=== PATIENT | male | born 1935 | race Caucasian/White ===

== ENCOUNTER 2016-10-04 15:29 | Inpatient (IN) | payer OTHER ==
--- NOTE | 2016-10-04 15:56 | PDOC ---
History of Present Illness - General History Source: Patient Exam Limitations: No Limitations - History of Present Illness Initial Comments: 10/04/16 16:12 The patient is a 81 year old male with a significant past medical history of colon ca and hypertension, who presents to the emergency department with rectal pain. He also reports lower abdominal pain. Patient notes that he has had radiation seeds embedded for about a month ago. He notes that he has an appointment scheduled with his oncologist. He denies chest pain, shortness of breath, headache and dizziness. He denies fever, chills, nausea, vomit, diarrhea, melena, hematochezia and constipation. He denies dysuria, frequency, urgency and hematuria. <Dyan Arreguin - Last Filed: 10/04/16 16:12> <Brennon Sanchez - Last Filed: 10/05/16 09:07> - General Chief Complaint: Nausea/Vomiting Stated Complaint: VOMITTING Past History <Dyan Arreguin - Last Filed: 10/04/16 16:12> - Past Medical History Anemia: No Asthma: No Cancer: No Cardiac Disorders: No CVA: No COPD: No CHF: No Dementia: No Diabetes: No GI Disorders: Yes (DIVERTICULOSIS) Disorders: Yes (H/O PROSTATE CA) HTN: Yes Hypercholesterolemia: Yes Liver Disease: No Seizures: No Thyroid Disease: No - Surgical History Abdominal Surgery: No Appendectomy: No Cardiac Surgery: No Cholecystectomy: No Lung Surgery: No Neurologic Surgery: No Orthopedic Surgery: No - Psycho/Social/Smoking Cessation Hx Anxiety: No Suicidal Ideation: No Smoking Status: No Smoking History: Never smoked Have you smoked in the past 12 months: No Number of Cigarettes Smoked Daily: 0 Hx Alcohol Use: No Drug/Substance Use Hx: No Substance Use Type: None Hx Substance Use Treatment: No <Brennon Sanchez - Last Filed: 10/05/16 09:07> - Past Medical History Allergies/Adverse Reactions: Allergies Allergy/AdvReac Type Severity Reaction Status Date / Time No Known Allergies Allergy Verified 10/04/16 16:03 Home Medications: Ambulatory Orders Amlodipine Besylate [Norvasc -] 5 mg PO DAILY 02/17/14 Losartan/Hydrochlorothiazide [Losartan-Hctz 100-12.5 mg Tab] 1 each PO DAILY 02/25 Tamsulosin HCl [Flomax] 0.4 mg PO DAILY 02/17/14 Rosuvastatin Calcium [Crestor] 10 mg PO HS 10/04/16 Review of Systems - Review of Systems Able to Perform ROS?: Yes Comments:: 10/04/16 16:13 CONSTITUTIONAL: Absent: fever, chills, diaphoresis, generalized weakness, malaise, loss of appetite HEENT: Absent: rhinorrhea, nasal congestion, throat pain, throat swelling, difficulty swallowing, mouth swelling, ear pain, eye pain, visual Changes CARDIOVASCULAR: Absent: chest pain, syncope, palpitations, irregular heart rate, lightheadedness , peripheral edema RESPIRATORY: Absent: cough, shortness of breath, dyspnea with exertion, orthopnea, wheezing, stridor, hemoptysis GASTROINTESTINAL: Present: abdominal pain, rectal pain. Absent: abdominal distension, nausea, vomiting, diarrhea, constipation, melena, hematochezia GENITOURINARY: Absent: dysuria, frequency, urgency, hesitancy, hematuria, flank pain, genital pain MUSCULOSKELETAL: Absent: myalgia, arthralgia, joint swelling SKIN: Absent: rash, itching, pallor HEMATOLOGIC/IMMUNOLOGIC: Absent: easy bleeding, easy bruising, lymphadenopathy, frequent infections ENDOCRINE: Absent: unexplained weight gain, unexplained weight loss, heat intolerance, cold intolerance NEUROLOGIC: Absent: headache, focal weakness or paresthesias, dizziness, unsteady gait, seizure, mental status changes, bladder or bowel incontinence PSYCHIATRIC: Absent: anxiety, depression, suicidal or homicidal ideation, hallucinations. <Dyan Arreguin - Last Filed: 10/04/16 16:12> *Physical Exam - Vital Signs Last Vital Signs Temp Pulse Resp BP Pulse Ox 97.7 F 60 18 180/73 100 10/04/16 16:04 10/04/16 16:04 10/04/16 16:04 10/04/16 16:04 10/04/16 16:04 - Physical Exam Comments: 10/04/16 16:13 GENERAL: Well developed, well nourished. Awake and alert. In no acute distress. HEENT: Normocephalic, atraumatic. PERRLA, EOMI. No conjunctival pallor. Sclera are non- icteric. Moist mucous membranes. Oropharynx is clear. NECK: Supple. Full ROM. No JVD. Carotid pulses 2+ and symmetric, without bruits. No thyromegaly. No lymphadenopathy. CARDIOVASCULAR: Regular rate and rhythm. No murmurs, rubs, or gallops. Distal pulses are 2+ and symmetric. PULMONARY: No evidence of respiratory distress. Lungs clear to auscultation bilaterally. No wheezing, rales or rhonchi. ABDOMINAL: +Lower abdominal tenderness upon palpation. Soft. Non-distended. No rebound or guarding. No organomegaly. Normoactive bowel sounds. MUSCULOSKELETAL Normal range of motion at all joints. No bony deformities or tenderness. No CVA tenderness. EXTREMITIES: No cyanosis. No clubbing. No edema. No calf tenderness. SKIN: Warm and dry. Normal capillary refill. No rashes. No jaundice. NEUROLOGICAL: Alert, awake, appropriate. Cranial nerves 2-12 intact. No deficits to light touch and temperature in face, upper extremities and lower extremities. No motor deficits in the in face, upper extremities and lower extremities. Normoreflexic in the upper and lower extremities. Normal speech. Toes are downgoing bilaterally. Gait is normal without ataxia. PSYCHIATRIC: Cooperative. Good eye contact. Appropriate mood and affect. RECTAL EXAM: no hemorrhoids, prostate slightly enlarged, no palpable mass or blood. <Dyan Arreguin - Last Filed: 10/04/16 16:12> ED Treatment Course - LABORATORY CBC & Chemistry Diagram: 10/04/16 16:27 10/04/16 16:27 <Brennon Sanchez - Last Filed: 10/05/16 09:07> Medical Decision Making - Medical Decision Making 10/05/16 09:06 CT shows appendicitis read by the radiologist. Dr. Dean to do surgery. <Brennon Sanchez - Last Filed: 10/05/16 09:07> *DC/Admit/Observation/Transfer - Attestations Scribe Attestion: 10/04/16 16:15 Documentation prepared by LINDA Lazo, acting as medical typist for Brennon Sanchez MD. <Dyan Arreguin - Last Filed: 10/04/16 16:12> - Discharge Dispostion Admit: Yes <Brennon Sanchez - Last Filed: 10/05/16 09:07> Diagnosis at time of Disposition: Appendicitis, acute Qualifiers: Acute appendicitis type: other Qualified Code(s): K35.89 - Other acute appendicitis - Discharge Dispostion Condition at time of disposition: Stable
[2016-10-04] MEDS ORDERED: SODIUM CHLORIDE 1,000 ML IV SCH (16:15)
[2016-10-04 16:46] LABS: EOSINOPHIL 1.1 % (0-4.5); MCH 28.7 pg (25.7-33.7); MCHC 33.2 g/dl (32.0-35.9); MEAN CELL VOLUME 86.5 fl (80-96); MEAN PLT VOLUME 10.7 fl (7.5-11.1); NEUTROPHILS 50.5 % (42.8-82.8); PLATELET COUNT 117 K/MM3 (134-434); RDW 12.6 % (11.9-15.9); WHITE BLOOD COUNT 7.3 K/mm3 (4.0-10.0)
[2016-10-04 17:08] LABS: ALBUMIN 4.2 g/dl (3.4-5.0); ALK PHOS 65 U/L (45-117); ANION GAP 9 (8-16); BILIRUBIN,TOTAL 0.5 mg/dL (0.2-1.0); CALCIUM 9.6 mg/dL (8.5-10.1); CO2 28 mmol/L (21-32); GLUCOSE,RANDOM 109 mg/dL (74-106); SGOT/AST 35 U/L (15-37); SGPT/ALT 18 U/L (12-78)
[2016-10-04 17:28] LABS: URINE APPEARANCE CLEAR; URINE BILIRUBIN NEGATIVE (NEGATIVE); URINE BLOOD NEGATIVE (NEGATIVE); URINE COLOR STRAW; URINE GLUCOSE (UA) NEGATIVE (NEGATIVE); URINE KETONE NEGATIVE (NEGATIVE); URINE LEUK ESTERASE NEGATIVE (NEGATIVE); URINE NITRITE NEGATIVE (NEGATIVE); URINE PROTEIN NEGATIVE (NEGATIVE); URINE UROBILINOGEN NEGATIVE E.U./dl (0.2-1.0)
[2016-10-04] MEDS ORDERED: PIPERACILLIN/TAZOB 3.375 GM 3.375 GM in DEXTROSE 5%-WATER - 50 ML IVPB ONE (22:13)
--- NOTE | 2016-10-04 22:13 | PDOC ---
[id number] 100 10/04/16 16:04 10/04/16 16:04 10/04/16 16:04 10/04/16 16:04 10/04/16 16:04 <Dorian Quintero - Last Filed: 10/04/16 22:28> - Vital Signs Last Vital Signs Temp Pulse Resp BP Pulse Ox 97.7 F 60 18 180/73 100 10/04/16 16:04 10/04/16 16:04 10/04/16 16:04 10/04/16 16:04 10/04/16 16:04 <Sahra Potter - Last Filed: 10/04/16 23:51> Heart Score/ECG Review - ECG Impressions Comment:: EKG read 23:49- sinus chasidy with 1st deg AV block 50 bpm <Sahra Potter - Last Filed: 10/04/16 23:51> ED Treatment Course - LABORATORY CBC & Chemistry Diagram: 10/04/16 16:27 10/04/16 16:27 - ADDITIONAL ORDERS Additional order review: Laboratory Results 10/04/16 10/04/16 10/04/16 17:15 16:27 16:27 Sodium 136 Potassium 4.2 Chloride 99 Carbon Dioxide 28 Anion Gap 9 BUN 12 D Creatinine 1.0 D Creat Clearance w eGFR > 60 Random Glucose 109 H Calcium 9.6 Total Bilirubin 0.5 AST 35 ALT 18 Alkaline Phosphatase 65 Total Protein 8.0 Albumin 4.2 Urine Color Straw Urine Appearance Clear Urine pH 9.0 H Ur Specific [place] 1.005 Urine Protein Negative Urine Glucose (UA) Negative Urine Ketones Negative Urine Blood Negative Urine Nitrite Negative Urine Bilirubin Negative Urine Urobilinogen Negative Ur Leukocyte Esterase Negative Stool Occult Blood Negative 10/04/16 16:27 RBC 4.78 MCV 86.5 MCHC 33.2 RDW 12.6 MPV 10.7 Neutrophils % 50.5 Lymphocytes % 39.5 Monocytes % 7.9 Eosinophils % 1.1 Basophils % 1.0 - Medications Given in the ED: ED Medications Discontinued Medications Generic Name Dose Route Start Last Admin Trade Name Freq PRN Reason Stop Dose Admin Fentanyl 100 mcg 10/04/16 16:15 10/04/16 16:49 Sublimaze Injection - IVPUSH 10/04/16 16:16 100 mcg ONCE ONE Administration <Dorian Quintero - Last Filed: 10/04/16 22:28> - LABORATORY CBC & Chemistry Diagram: 10/04/16 16:27 10/04/16 16:27 - ADDITIONAL ORDERS Additional order review: Laboratory Results 10/04/16 10/04/16 10/04/16 17:15 16:27 16:27 WBC 7.3 RBC 4.78 Hgb 13.7 Hct 41.4 MCV 86.5 MCHC 33.2 RDW 12.6 Plt Count 117 L MPV 10.7 Neutrophils % 50.5 Lymphocytes % 39.5 Monocytes % 7.9 Eosinophils % 1.1 Basophils % 1.0 Sodium Potassium Chloride Carbon Dioxide Anion Gap BUN Creatinine Creat Clearance w eGFR Random Glucose Calcium Total Bilirubin AST ALT Alkaline Phosphatase Total Protein Albumin Urine Color Straw Urine Appearance Clear Urine pH 9.0 H Ur Specific [place] 1.005 Urine Protein Negative Urine Glucose (UA) Negative Urine Ketones Negative Urine Blood Negative Urine Nitrite Negative Urine Bilirubin Negative Urine Urobilinogen Negative Ur Leukocyte Esterase Negative Stool Occult Blood Negative 10/04/16 16:27 WBC RBC Hgb Hct MCV MCHC RDW Plt Count MPV Neutrophils % Lymphocytes % Monocytes % Eosinophils % Basophils % Sodium 136 Potassium 4.2 Chloride 99 Carbon Dioxide 28 Anion Gap 9 BUN 12 D Creatinine 1.0 D Creat Clearance w eGFR > 60 Random Glucose 109 H Calcium 9.6 Total Bilirubin 0.5 AST 35 ALT 18 Alkaline Phosphatase 65 Total Protein 8.0 Albumin 4.2 Urine Color Urine Appearance Urine pH Ur Specific [place] Urine Protein Urine Glucose (UA) Urine Ketones Urine Blood Urine Nitrite Urine Bilirubin Urine Urobilinogen Ur Leukocyte Esterase Stool Occult Blood 10/04/16 16:27 RBC 4.78 MCV 86.5 MCHC 33.2 RDW 12.6 MPV 10.7 Neutrophils % 50.5 Lymphocytes % 39.5 Monocytes % 7.9 Eosinophils % 1.1 Basophils % 1.0 - Medications Given in the ED: ED Medications Discontinued Medications Generic Name Dose Route Start Last Admin Trade Name Monica PRN Reason Stop Dose Admin Fentanyl 100 mcg 10/04/16 16:15 10/04/16 16:49 Sublimaze Injection - IVPUSH 10/04/16 16:16 100 mcg ONCE ONE Administration <Sahra Potter - Last Filed: 10/04/16 23:51> Medical Decision Making - Medical Decision Making 10/04/16 22:28 First call placed to Dr. Rasheed at 22:25. Case discussed with Dr. Rasheed at 22:28. <Dorian Quintero - Last Filed: 10/04/16 22:28> - Medical Decision Making 10/04/16 18:32 Patient endorsed to me by Dr. Sanchez, awaiting CT a/p for further evaluation of acute abdomen. Hx rectal CA s/p seed implant. 10/04/16 22:20 Case d/w Dr. Dean. Will evaluate in AM. I have given zosyn. 10/04/16 22:29 D/w Dr. Rasheed, covering Dr. Rubalcava. Will admit. <Sahra Potter - Last Filed: 10/04/16 23:51> *DC/Admit/Observation/Transfer <Dorian Quintero - Last Filed: 10/04/16 22:28> - Discharge Dispostion Admit: Yes <Sahra Potter - Last Filed: 10/04/16 23:51> Diagnosis at time of Disposition: Appendicitis, acute Qualifiers: Acute appendicitis type: other Qualified Code(s): K35.89 - Other acute appendicitis - Discharge Dispostion Condition at time of disposition: Stable - Referrals
[2016-10-04] MEDS ORDERED: PIPERACILLIN/TAZOB 3.375 GM 50 ML IVPB ONE (22:16)
[2016-10-04] MEDS ORDERED: ACETAMINOPHEN 1000 MG/100 ML VIAL (NON FORMULARY) IVPB PRN (23:11)
[2016-10-04] MEDS ORDERED: ONDANSETRON 4 MG/2 ML VIAL IVPB PRN (23:11)
[2016-10-04] MEDS ORDERED: morphine CARPU-JECT 4 MG/1 ML DISP.SYRIN IVPUSH PRN (23:11)
[2016-10-04] MEDS ORDERED: amLODIPine BESYLATE 5 MG TABLET (FP) PO ONE (23:14)
[2016-10-04] MEDS ORDERED: DEXTROSE 5%-NORMAL SALINE 1,000 ML IV SCH (23:15)
[2016-10-04] MEDS: PIPERACILLIN/TAZOB 3.375 GM/50 ML PRE-DOCKED IVPB SCH (23:16)
[2016-10-04] MEDS ORDERED: amLODIPine BESYLATE 5 MG TABLET (FP) ONE (23:17)
--- NOTE | 2016-10-05 08:26 | CON.CARD ---
Consult Consult Specialty:: CARDIO Referred by:: guy Reason for Consultation:: chf eval - History of Present Illness Chief Complaint: abd pain History of Present Illness: 81 yo male presented with abdominal and rectal pain. he has known colon Ca s/p radiation seeds implant recently, with Onc f/u. had CT a/p in ER, ? what results were--dr coburn of surgery has been consulted for appendicitis pt is [place] speaking--denies (in [place]) cp or sob or any h/o weak heart or [place]; says he has BP but no heart problems. says he does not ever get cp or sob, including can walk up 2 flights of stairs without stopping currently denies cp and sob as well PMH: HTN - Alcohol/Substance Use Hx Alcohol Use: No - Smoking History Smoking history: Never smoked Have you smoked in the past 12 months: No Aproximately how many cigarettes per day: 0 Home Medications - Allergies Allergies/Adverse Reactions: Allergies Allergy/AdvReac Type Severity Reaction Status Date / Time No Known Allergies Allergy Verified 10/04/16 16:03 - Home Medications Home Medications: Ambulatory Orders Amlodipine Besylate [Norvasc -] 5 mg PO DAILY 02/17/14 Losartan/Hydrochlorothiazide [Losartan-Hctz 100-12.5 mg Tab] 1 each PO DAILY 02/25 Tamsulosin HCl [Flomax] 0.4 mg PO DAILY 02/17/14 Rosuvastatin Calcium [Crestor] 10 mg PO HS 10/04/16 Family Disease History - Family Disease History Family History: Denies (no cmp) Review of Systems - Review of Systems Constitutional: denies: Chills, Fever Eyes: denies: Eye Pain HENT: denies: Nasal Congestion Neck: denies: Stiffness Cardiovascular: denies: Palpitations Respiratory: denies: Orthopnea, PND Gastrointestinal: denies: Diarrhea, Rectal Bleeding Genitourinary: denies: Burning, Hematuria Musculoskeletal: denies: Muscle Pain Integumentary: denies: Rash Neurological: denies: Numbness, Seizure, Syncope Endocrine: denies: Excessive Sweating Hematology/Lymphatic: denies: Excessive Bleeding Vital Signs: Vital Signs Temperature 98.2 F 10/05/16 07:27 Pulse Rate 62 10/05/16 07:27 Respiratory Rate 20 10/05/16 07:27 Blood Pressure 124/80 10/05/16 07:27 O2 Sat by Pulse Oximetry (%) 100 10/04/16 16:04 Constitutional: Yes: Well Nourished, No Distress Eyes: No: Sclera Icterus HENT: No: Nasal Congestion Neck: No: Decreased ROM Respiratory: Yes: CTA Bilaterally. No: Accessory Muscle Use, Rales, Wheezes Gastrointestinal: Yes: Normal Bowel Sounds, Tenderness (lower abd R > L). No: Distention, Hepatomegaly, Palpable Mass Cardiovascular: Yes: Regular Rate and Rhythm JVD: No Carotid Bruit: Yes PMI: Non-Displaced Heart Sounds: Yes: S1, S2. No: Gallop Murmur: No: Systolic Murmur, Diastolic Murmur Musculoskeletal: Yes: Other (No kyphosis) Extremities: No: Cool, Cyanosis Edema: No Peripheral Pulses: 2+ Left Carotid, 2+ Right Carotid, 2+ Left Doralis Pedis, 2+ Right Dorsalis Pedis Integumentary: No: Jaundice Neurological: Yes: Alert. No: Seizure Psychiatric: No: Agitated - Other Data Labs, Other Data: Laboratory Tests 10/04/16 10/04/16 16:27 16:27 WBC 7.3 Hgb 13.7 Plt Count 117 L Sodium 136 Potassium 4.2 Carbon Dioxide 28 BUN 12 D Creatinine 1.0 D AST 35 ALT 18 ekg: NSR, 1st degr AVB; nl axis; qs v1-2 only, no ST-T (no old) Assessment/Plan abd pain, h/o colon Ca: -per pmd and surgery consult HTN: -bp reasonably controlled here -cont home meds preop CV eval: -in the event that pt requires abdominal or any other surgery: his RCRI is 0 with preserved functional status; -he denies any sx's of ischemic heart dz or chf/valvular dz at baseline, and currently appears euvolemic with normal exam and no cv sx's -he is low risk for periop CV complications and may proceed without further testing
[2016-10-05] MEDS ORDERED: ePHEDrine SULFATE 50 MG/1 ML AMPULE ONE (08:32)
[2016-10-05] MEDS ORDERED: PHENYLEPHRINE HCL 10 MG/1 ML SINGLE DOSE VIAL ONE (08:32)
[2016-10-05] MEDS ORDERED: SUCCINYLCHOLINE CHLORIDE 200 MG/10 ML VIAL ONE (08:33)
[2016-10-05] MEDS ORDERED: ROCURONIUM BROMIDE 50 MG/5 ML VIAL ONE (08:33)
[2016-10-05] MEDS ORDERED: PROPOFOL 20 ML ONE ×2 (08:33)
[2016-10-05] MEDS ORDERED: SODIUM CHLORIDE 0.9% P/F 10 ML VIAL IJ ONE ×2 (08:40→10:12)
[2016-10-05] MEDS ORDERED: ceFAZolin SODIUM 1 GM VIAL ONE (10:12)
[2016-10-05] MEDS ORDERED: ONDANSETRON 4 MG/2 ML VIAL ONE (10:13)
[2016-10-05] MEDS ORDERED: GLYCOPYRROLATE 0.2 MG/1 ML VIAL ONE (10:13)
[2016-10-05] MEDS ORDERED: NEOSTIGMINE METHYLSULFATE 0.5 MG/ML - 10 ML MDV ONE (10:13)
[2016-10-05] MEDS ORDERED: LIDOCAINE HCL/PF 2% SDV 5ML VIAL ONE (10:33)
[2016-10-05] MEDS ORDERED: ACETAMINOPHEN INJECTION 100 ML IVPB ONE (10:44)
[2016-10-05] MEDS ORDERED: ceFAZolin SODIUM 1 GM VIAL IVPB ONE (11:11)
[2016-10-05] MEDS ORDERED: BUPIVACAINE HCL/PF 0.5% (5MG/ML) 10 ML VIAL IJ ONE (11:45)
[2016-10-05] MEDS ORDERED: ONDANSETRON 4 MG/2 ML VIAL IVPUSH PRN (12:09)
[2016-10-05] MEDS ORDERED: LACTATED RINGERS SOLUTION 1,000 ML IV SCH (12:15)
--- NOTE | 2016-10-05 13:13 | CONSULT ---
Consult Consult Specialty:: Surgery Reason for Consultation:: Acute appendicitis - History of Present Illness Chief Complaint: Abdominal pain History of Present Illness: 81 male presents for abdominal pain x 1-2 days Pain in RLQ No prior similar symptoms in the past No fevers/chills No diarrhea - History Source History Provided By: Patient, Family Member, Medical Record Limitations to Obtaining History: Language Barrier - Past Medical History Cardio/Vascular: Yes: HTN Renal/: Yes: Cancer (Prostate cancer- radiation seed placement) - Alcohol/Substance Use Hx Alcohol Use: No - Smoking History Smoking history: Never smoked Have you smoked in the past 12 months: No Aproximately how many cigarettes per day: 0 Home Medications - Allergies Allergies/Adverse Reactions: Allergies Allergy/AdvReac Type Severity Reaction Status Date / Time No Known Allergies Allergy Verified 10/04/16 16:03 - Home Medications Home Medications: Ambulatory Orders Amlodipine Besylate [Norvasc -] 5 mg PO DAILY 02/17/14 Losartan/Hydrochlorothiazide [Losartan-Hctz 100-12.5 mg Tab] 1 each PO DAILY 02/25 Tamsulosin HCl [Flomax] 0.4 mg PO DAILY 02/17/14 Rosuvastatin Calcium [Crestor] 10 mg PO HS 10/04/16 Family Disease History - Family Disease History Family History: Unremarkable Review of Systems - Review of Systems Constitutional: denies: Chills, Fever Neck: reports: No Symptoms Cardiovascular: denies: Chest Pain Respiratory: denies: Cough Gastrointestinal: reports: Abdominal Pain. denies: Diarrhea, Nausea, Vomiting Genitourinary: reports: No Symptoms Neurological: denies: Change in LOC Pain Intensity: 4 Physical Exam Vital Signs: Vital Signs Temperature 97.6 F 10/05/16 12:00 Pulse Rate 64 10/05/16 13:00 Respiratory Rate 10 L 10/05/16 13:00 Blood Pressure 141/73 10/05/16 13:00 O2 Sat by Pulse Oximetry (%) 100 10/05/16 13:00 Constitutional: Yes: Calm HENT: Yes: WNL Neck: Yes: Supple Cardiovascular: Yes: Regular Rate and Rhythm Respiratory: Yes: Regular Gastrointestinal: Yes: Soft, Tenderness (RLQ). No: Distention, Tenderness, Rebound Extremities: Yes: WNL Neurological: Yes: Alert, Oriented Labs: CBC, BMP 10/04/16 16:27 10/04/16 16:27 Imaging - Results Cat Scan: Report Reviewed, Image Reviewed Problem List - Problems (1) Appendicitis, acute Code(s): K35.80 - UNSPECIFIED ACUTE APPENDICITIS Qualifiers: Acute appendicitis type: with localized peritonitis Qualified Code(s ): K35.3 - Acute appendicitis with localized peritonitis Assessment/Plan 81 male with acute appendicitis NPO Antibiotics For laparoscopic possible open appendectomy Risks and benefits explained Understands and agrees
--- NOTE | 2016-10-05 13:14 | OP ---
Operative Note - Note: Operative Date: 10/05/16 Pre-Operative Diagnosis: Acute appendicitis Operation: Laparoscopic appendectomy Post-Operative Diagnosis: Same as Pre-op Surgeon: Jason Dean Digital Printer: Sheila Yadav Anesthesia: General Specimens Removed: Appendix Estimated Blood Loss (mls): 5 Operative Report Dictated: Yes
[2016-10-05] MEDS ORDERED: ACETAMINOPHEN 1000 MG/100 ML VIAL (NON FORMULARY) IVPB PRN (13:19)
[2016-10-05] MEDS ORDERED: ONDANSETRON 4 MG/2 ML VIAL IVPB PRN ×2 (13:19→17:52)
[2016-10-05] MEDS ORDERED: morphine CARPU-JECT 4 MG/1 ML DISP.SYRIN IVPUSH PRN (13:19)
[2016-10-05] MEDS: DEXTROSE 5%-NORMAL SALINE 1,000 ML IV SCH (13:30)
[2016-10-05] MEDS: HEPARIN NA (PORCINE) 5,000 UNITS/ML 1ML VIAL SQ SCH ×2 (14:22→21:16)
[2016-10-05] MEDS: PIPERACILLIN/TAZOB 3.375 GM/50 ML PRE-DOCKED IVPB SCH ×2 (14:23→14:24)
--- NOTE | 2016-10-05 15:10 | SURG ---
Surgery Brush Maker Note Brush Maker: Sheila Yadav PA-C Date of Service: 10/05/16 Diagnosis: Acute appendicitis Procedure: Laparoscopic appendectomy I was present for the entirety of the operative procedure. For further detail, please refer to operative report. Visit type - Case Type Case Type: ED Admission - New patient This patient is new to me today: Yes Date on this admission: 10/05/16
[2016-10-05 15:42] VITALS: BMI 24.9
[2016-10-05] MEDS ORDERED: LEVOFLOXACIN 500 MG IVPB 100 ML IVPB ONE (16:00)
--- NOTE | 2016-10-05 17:50 | HP ---
Admitting History and Physical - Primary Care Physician PCP: Kiya Pendleton - Admission Chief Complaint: ABDOMINAL PAIN/ACUTE APPENDICITS History of Present Illness: The patient is a 81 year old male with a significant past medical history of colon ca and hypertension, who presents to the emergency department with rectal pain. He also reports lower abdominal pain. Patient notes that he has had radiation seeds embedded for about a month ago. He notes that he has an appointment scheduled with his oncologist. He denies chest pain, shortness of breath, headache and dizziness. He denies fever, chills, nausea, vomit, diarrhea, melena, hematochezia and constipation. He denies dysuria, frequency, urgency and hematuria. ct scan shows acute appendicitis History Source: Patient, Medical Record - Past Medical History Cardiovascular: Yes: HTN Renal/: Yes: Cancer (Prostate cancer- radiation seed placement) - Smoking History Smoking history: Never smoked Have you smoked in the past 12 months: No Aproximately how many cigarettes per day: 0 - Alcohol/Substance Use Hx Alcohol Use: No Home Medications - Allergies Allergies/Adverse Reactions: Allergies Allergy/AdvReac Type Severity Reaction Status Date / Time No Known Allergies Allergy Verified 10/04/16 16:03 - Home Medications Home Medications: Ambulatory Orders Amlodipine Besylate [Norvasc -] 10 mg PO DAILY 02/17/14 Tamsulosin HCl [Flomax] 0.4 mg PO HS 02/17/14 Rosuvastatin Calcium [Crestor] 10 mg PO HS 10/04/16 Acetaminophen [Mapap] 500 mg PO Q6H PRN 10/05/16 Carvedilol 25 mg PO BID 10/05/16 Donepezil HCl 5 mg PO DAILY 10/05/16 Olmesartan/Hydrochlorothiazide [Olmesartan-Hctz 40-25 mg Tab] 1 each PO DAILY Oxycodone HCl/Acetaminophen [Percocet 5-325 mg Tablet] 1 - 2 tab PO Q6H #28 tab MDD 4 10/05/16 Review of Systems Findings/Remarks: POST -OP, DROWSEY S/P APPENDECTOMY TODAY - Review of Systems Constitutional: reports: Weakness Eyes: reports: No Symptoms HENT: reports: No Symptoms Neck: reports: No Symptoms Cardiovascular: reports: No Symptoms Respiratory: reports: No Symptoms Gastrointestinal: reports: Abdominal Pain, Dysphagia, Indigestion Genitourinary: reports: No Symptoms Musculoskeletal: reports: No Symptoms Integumentary: reports: No Symptoms Neurological: reports: No Symptoms Endocrine: reports: No Symptoms Hematology/Lymphatic: reports: No Symptoms Psychiatric: reports: No Symptoms Physical Examination Vital Signs: Vital Signs Temperature 97.8 F 10/05/16 15:09 Pulse Rate 60 10/05/16 15:09 Respiratory Rate 22 10/05/16 15:09 Blood Pressure 155/78 10/05/16 15:09 O2 Sat by Pulse Oximetry (%) 100 10/05/16 13:45 Constitutional: Yes: Mild Distress Eyes: Yes: WNL HENT: Yes: WNL Neck: Yes: WNL Cardiovascular: Yes: WNL Respiratory: Yes: WNL Gastrointestinal: Yes: Tenderness Renal/: Yes: WNL Musculoskeletal: Yes: WNL Extremities: Yes: WNL Edema: No Peripheral Pulses WNL: Yes Integumentary: Yes: WNL Wound/Incision: Yes: Clean/Dry Neurological: Yes: WNL ...Motor Strength: WNL Psychiatric: Yes: WNL Imaging - Results Cat Scan: Report Reviewed Problem List - Problems (1) Appendicitis, acute Assessment/Plan: POSTOP TODAY INCENTIVE SPIROMETRY IV LEVAQUIN OOB TO CHAIR DVT PROHYLAXIS Code(s): K35.80 - UNSPECIFIED ACUTE APPENDICITIS Qualifiers: Acute appendicitis type: with localized peritonitis Qualified Code(s ): K35.3 - Acute appendicitis with localized peritonitis
[2016-10-05] MEDS ORDERED: ACETAMINOPHEN 325 MG TABLET (FP) PO PRN (17:52)
[2016-10-05] MEDS ORDERED: PANTOPRAZOLE SODIUM 40 MG in SODIUM CHLORIDE 100 ML IVPB ONE (17:53)
[2016-10-05] MEDS ORDERED: PIPERACILLIN/TAZOB 3.375 GM/50 ML PRE-DOCKED IVPB SCH (18:00)
[2016-10-05] MEDS ORDERED: PANTOPRAZOLE SODIUM 40 MG/100 ML PRE-DOCKED IVPB ONE (18:15)
--- NOTE | 2016-10-05 20:20 | SPEC ---
DATE OF OPERATION: 10/05/2016 SURGEON: Jason Dean MD SYSTEMS DEVELOPMENT MANAGER: QIAN Brooke PREOPERATIVE DIAGNOSIS: Acute appendicitis. POSTOPERATIVE DIAGNOSIS: Acute appendicitis. PROCEDURE: Laparoscopic appendectomy. ESTIMATED BLOOD LOSS: 5 mL. DRAINS: None. ANESTHESIA: GET. SPECIMENS: Appendix. FINDINGS: Acute appendicitis. REASON FOR PROCEDURE: This is an 81-year-old gentleman who presented to the hospital with abdominal pain. On imaging, he was found to have evidence of acute appendicitis. Because of this, he was consented for a laparoscopic, possible open, appendectomy. RISKS AND BENEFITS: The risks and benefits were explained for a laparoscopic, possible open appendectomy. These included bleeding, infection, hernia, MD, DVT, PE, injury to surrounding structures including the liver, colon, bowel, bladder, ureter, vessel injury, nerve injury, abscess formation, staple line leak, staple line dehiscence as some of the possible complications. The patient understood and signed informed consent. DESCRIPTION OF PROCEDURE: The patient was placed supine on the operating room table. The patient underwent general endotracheal intubation. A Humphreys catheter was inserted by the nursing staff. The abdomen was prepped and draped in the usual sterile fashion. A timeout was performed. A periumbilical incision was made and a 5-mm optical trocar was inserted under direct visualization with the laparoscope. Pneumoperitoneum was then established. Subsequently, a 5-mm trocar was placed in the suprapubic area and a 12-mm trocar placed in the left lower quadrant. The patient was placed in Trendelenburg right side up position. After meticulous dissection, the appendix was identified. The appendix was freed from its surrounding structures and the appendix was retracted to the anterior abdominal wall. The base of the appendix was identified. A window was created within the mesentery near the base of the appendix. The appendix at its base was stapled using a laparoscopic Endo-RONI stapler with a white load. The mesoappendix was then transected using a laparoscopic Endo-RONI stapler with a white load. The appendix was placed in an EndoCatch bag. Inspection of both staple lines was identified. The staple line at the base of the appendix was noted to be fully intact. Hemostasis was noted at the staple line of the mesoappendix. Copious irrigation and suction was performed. The appendix was removed from the abdominal cavity and sent off the operative field as specimen. The patient was then placed in left side up position. The 12-mm trocar was removed. The fascia at this site was closed using a 0 Vicryl suture with a Sedrick-Simi device. The patient was then placed supine. Pneumoperitoneum was desufflated and all further trocars were removed. All incision sites were irrigated and Marcaine was injected at all incision sites. The fascial suture was secured. All incision sites were closed using 4-0 Biosyn. Sterile dressings were applied. The patient tolerated the procedure well. The Humphreys catheter was removed and the patient was transferred to the recovery room in stable condition. James YANCEY/[id number]
[2016-10-05] MEDS: CARVEDILOL 25 MG TABLET (FP) PO SCH (21:16)
[2016-10-05] MEDS ORDERED: ROSUVASTATIN CA 10 MG TABLET (FP) PO SCH (22:00)
--- NOTE | 2016-10-05 23:25 | EKG ---
Test Reason : Blood Pressure : / mmHG Vent. 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
[2016-10-06] MEDS: HEPARIN NA (PORCINE) 5,000 UNITS/ML 1ML VIAL SQ SCH ×2 (05:34→14:37)
[2016-10-06 07:21] LABS: MCHC 33.4 g/dl (32.0-35.9); MEAN CELL VOLUME 86.8 fl (80-96); MEAN PLT VOLUME 9.6 fl (7.5-11.1); PLATELET COUNT 110 K/MM3 (134-434); RDW 12.8 % (11.9-15.9); WHITE BLOOD COUNT 6.8 K/mm3 (4.0-10.0)
--- NOTE | 2016-10-06 07:59 | PN ---
Progress Note (short form) - Note Progress Note: POD #2 s/p Lap appy No acute events since surgery per RN notes. Sitting in chair at bedside resting comfortably without complaint. Tolerating PO diet. Ambulating. Voiding. Denies n/v/f/c, CP or SOB. Last Vital Signs Temp Pulse Resp BP Pulse Ox 98.7 F 53 L 18 177/72 100 10/06/16 07:08 10/06/16 07:08 10/06/16 07:08 10/06/16 07:08 10/05/16 21:00 CBC, BMP 10/06/16 06:00 PE General: NAD ABD: soft. NT. ND. All surgical ports intact. No hematoma. LE: soft. NT b/l <Jerome Arriola P - Last Filed: 10/06/16 07:55> - Note Progress Note: Agree POD 1 laparoscopic appendectomy No pain On diet AVSS Abd soft WBC 6.8 Doing well Can discharge home from surgery standpoint No lifting more than 10 pounds x 6 weeks Follow up in 1-2 weeks <Jason Dean - Last Filed: 10/06/16 12:56> Problem List - Problems (1) S/P laparoscopic appendectomy Assessment/Plan: Doing well. Can be discharged home from a surgical standpoint f/u w/ Dr. Dean in [address] of [address] Dean, thank you for allowing us to participate in your patient' s care <Jerome Arriola P - Last Filed: 10/06/16 07:55> - Problems (1) Appendicitis, acute Code(s): K35.80 - UNSPECIFIED ACUTE APPENDICITIS Qualifiers: Acute appendicitis type: with localized peritonitis Qualified Code(s ): K35.3 - Acute appendicitis with localized peritonitis <Jason Dean - Last Filed: 10/06/16 12:56>
--- NOTE | 2016-10-06 08:02 | PN ---
Progress Note (short form) - Note Progress Note: Anesthesia post op Pt seen and examined S:Alert and wake,comfortable O: Vital Signs Temperature 98.7 F 10/06/16 07:08 Pulse Rate 53 L 10/06/16 07:08 Respiratory Rate 18 10/06/16 07:08 Blood Pressure 177/72 10/06/16 07:08 O2 Sat by Pulse Oximetry (%) 100 10/05/16 21:00 CBC, BMP 10/06/16 06:00 Current Active Problems A/P:Appendicitis, acute (Acute) S/P laparoscopic appendectomy (Acute) Doing well post op Continue current care Jim Silveira MD
[2016-10-06 08:03] LABS: ALBUMIN 3.5 g/dl (3.4-5.0); ALK PHOS 56 U/L (45-117); ANION GAP 9 (8-16); BILIRUBIN,TOTAL 0.7 mg/dL (0.2-1.0); CALCIUM 8.8 mg/dL (8.5-10.1); CO2 30 mmol/L (21-32); CREATININE 0.8 mg/dL (0.7-1.3); GLUCOSE,RANDOM 111 mg/dL (74-106); SGOT/AST 25 U/L (15-37); SGPT/ALT 10 U/L (12-78); TOT PROT 6.9 g/dl (6.4-8.2)
[2016-10-06] MEDS ORDERED: TAMSULOSIN HCL 0.4 MG CAP.ER.24H (FP) PO SCH (08:30)
--- NOTE | 2016-10-06 08:47 | DS ---
Physical Examination Vital Signs: Vital Signs Temperature 98.7 F 10/06/16 07:08 Pulse Rate 53 L 10/06/16 07:08 Respiratory Rate 18 10/06/16 07:08 Blood Pressure 177/72 10/06/16 07:08 O2 Sat by Pulse Oximetry (%) 100 10/05/16 21:00 Cardiovascular: Yes: Regular Rate and Rhythm Respiratory: Yes: Regular, CTA Bilaterally Gastrointestinal: Yes: Normal Bowel Sounds, Soft Labs: CBC, BMP 10/06/16 06:00 10/06/16 06:00 Discharge Summary Reason For Visit: APPENDICITIS, ACUTE Current Active Problems Appendicitis, acute (Acute) S/P laparoscopic appendectomy (Acute) Hospital Course: The patient is a 81 year old male with a significant past medical history of colon ca and hypertension, who presents to the emergency department with rectal pain. He also reports lower abdominal pain. Patient notes that he has had radiation seeds embedded for about a month ago. He notes that he has an appointment scheduled with his oncologist. He denies chest pain, shortness of breath, headache and dizziness. He denies fever, chills, nausea, vomit, diarrhea, melena, hematochezia and constipation. He denies dysuria, frequency, urgency and hematuria. ct scan shows acute appendicitis History Source: Patient, Medical Record - Past Medical History Cardiovascular: Yes: HTN Renal/: Yes: Cancer (Prostate cancer- radiation seed placement) Appendicitis, acute (Acute) S/P laparoscopic appendectomy (Acute) PT FEELS BETTER--WILL MONITOR BP AND DIET--IF TOLERATING THEN DC HOME Condition: Stable - Instructions Diet, Activity, Other Instructions: Dr Dean Discharge Instructions Dear KAYE MILLANARNACION, Post Operative Instructions Physical activity Resume your normal everyday activity as tolerated no heavy lifting or exercise until seen by your surgeon. You may walk unlimited leah of and climb stairs. You may resume driving the car when you feel safe and comfortable behind the wheel. Wound care If you have a bandage, leave it on, and keep dry for 48-72 hours. After that time discard the outer bandage. If there are tapes on the skin under the outer bandage, leave them in place. They will peel off in the next 7 to 10 days. Do Not Peel them off. You may shower the day after surgery. If there are tapes present on the skin, you may shower over them. Diet There are no dietary restrictions. Eat healthy, high-fiber foods. Drink 6 to 8 glasses of liquid each day. This will assist in keeping your bowels are regular. Pain management You may take Tylenol or acetaminophen or Ibuprofen (for example, Motrin, Advil etc.) Any pain prescription medication ordered should be taken as prescribed for moderate to severe pain. Call Dr. Dean for any of the following: Severe pain not relieved by medication Fever of 101 or higher Excessive bleeding or drainage on dressing Inability to urinate Call the office for an appointment in 7-14 days. Referrals: Jason Dean MD [Staff Physician] - Natalie Rubalcava MD [Primary Care Provider] - 1 Week - Home Medications Comprehensive Discharge Medication List: Ambulatory Orders Amlodipine Besylate [Norvasc -] 10 mg PO DAILY 02/17/14 Tamsulosin HCl [Flomax -] 0.4 mg PO HS 02/17/14 Rosuvastatin Calcium [Crestor] 10 mg PO HS 10/04/16 Acetaminophen [Mapap] 500 mg PO Q6H PRN 10/05/16 Carvedilol 25 mg PO BID 10/05/16 Donepezil HCl 5 mg PO DAILY 10/05/16 Olmesartan/Hydrochlorothiazide [Olmesartan-Hctz 40-25 mg Tab] 1 each PO DAILY Oxycodone HCl/Acetaminophen [Percocet 5-325 mg Tablet] 1 - 2 tab PO Q6H #28 tab MDD 4 10/05/16
[2016-10-06] MEDS ORDERED: VALSARTAN 160 MG TABLET (UD) PO SCH (10:00)
[2016-10-06] MEDS ORDERED: amLODIPine BESYLATE 10 MG TABLET (FP) PO SCH (10:00)
[2016-10-06] MEDS: CARVEDILOL 25 MG TABLET (FP) PO SCH (10:28)
--- NOTE | 2016-10-06 11:46 | PN ---
Progress Note, Physician Chief Complaint: appendicitis History of Present Illness: denies cp, sob, syncope, palpit - Current Medication List Current Medications: Active Medications Acetaminophen (Tylenol -) 650 mg PO Q6H PRN PRN Reason: FEVER OR PAIN Last Admin: 10/05/16 20:14 Dose: 650 mg Amlodipine Besylate (Norvasc -) 10 mg PO DAILY [facility] Last Admin: 10/06/16 10:28 Dose: 10 mg Carvedilol (Coreg -) 25 mg PO BID [facility] Last Admin: 10/06/16 10:28 Dose: 25 mg Heparin Sodium (Porcine) (Heparin -) 5,000 unit SQ TID [facility] Last Admin: 10/06/16 05:34 Dose: 5,000 unit Dextrose/Sodium Chloride (D5-Ns -) 1,000 mls @ 75 mls/hr IV ASDIR [facility] Last Admin: 10/05/16 13:30 Dose: 0 mls Morphine Sulfate (Morphine Injection -) 4 mg IVPUSH Q6H PRN PRN Reason: PAIN Stop: 10/07/16 23:10 Last Admin: 10/05/16 14:35 Dose: 4 mg Ondansetron HCl (Zofran Injection) 8 mg IVPB Q6H PRN PRN Reason: NAUSEA Rosuvastatin Calcium (Crestor -) 10 mg PO HS [facility] Last Admin: 10/05/16 21:16 Dose: 10 mg Tamsulosin HCl (Flomax -) 0.4 mg PO DAILY@0830 [facility] Last Admin: 10/06/16 09:30 Dose: 0.4 mg Valsartan (Diovan -) 160 mg PO DAILY [facility] Last Admin: 10/06/16 10:28 Dose: 160 mg - Objective Vital Signs: Vital Signs Temperature 98.7 F 10/06/16 07:08 Pulse Rate 53 L 10/06/16 07:08 Respiratory Rate 18 10/06/16 07:08 Blood Pressure 177/72 10/06/16 07:08 O2 Sat by Pulse Oximetry (%) 100 10/05/16 21:00 Constitutional: Yes: Well Nourished, No Distress, Calm Cardiovascular: Yes: Regular Rate and Rhythm, S1, S2. No: Gallop, Murmur Respiratory: Yes: Regular, CTA Bilaterally. No: Accessory Muscle Use, Rales Extremities: No: Cold Edema: No Neurological: Yes: Alert, Oriented Psychiatric: No: Agitated Labs: CBC, BMP 10/06/16 06:00 10/06/16 06:00 Assessment/Plan acute appendicitis: -s/p lap appendectomy HTN: -bp higher today -cont home meds -reassess bp as outpt within 48 hrs at pmd (dr guido)--instrxns given to pt and in divehi and they verbalize understanding carotid bruit: -dopplers with minimal, nonob kristin -cont crestor -consider ASA as outpt, once ok from postop standpoint, though borderline indication for this finding
[2016-10-06 12:14] VITALS: TEMP 98.5
[2016-10-06 14:35] VITALS: BP 150/76; PULSE 54
[2016-10-06] MEDS: DEXTROSE 5%-NORMAL SALINE 1,000 ML IV SCH (14:37)
--- NOTE | 2016-10-06 16:20 | EKG ---
Test Reason : Blood Pressure : / mmHG Vent. 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
--- NOTE | 2016-10-08 13:03 | PATH ---
Surgical Pathology Report Patient Name: KAYE BOSS Med. Rec. #: [id number] /Age/Gender: 1935 (Age: 81) / M Account: [id number] Location: [facility] MED/SURG Taken: 10/05/2016 Received: 10/06/2016 Reported: 10/08/2016 Physicians: Jason Dean M.D. Specimen(s) Received APPENDIX Clinical History Acute appendicitis Final Diagnosis APPENDIX, APPENDECTOMY: APPENDIX WITH FIBROUS OBLITERATION OF THE LUMEN. NO INFLAMMATION IDENTIFIED. Electronically Signed Kyaw Mueller M.D. Gross Description Received in formalin, labeled "appendix," is a 4 cm. in length vermiform appendix with a stapled margin of resection and moderate attached fat. The serosa is gotti-amaro and smooth. The wall of the appendix averages 0.2 cm. in thickness. Analytical Scientist sections are submitted in one cassette. 10/06/2016 saudi10/06/2016
== END 2016-10-06 14:40 | disposition home or self-care (01) | DRG 343 ==
LOC: JER 15:29 → JERBED 23:09 → J8W 10-05 14:08
PROVIDERS: ADMIT Family Medicine; ATTEND Family Medicine
PROC: 0DTJ4ZZ Resection of Appendix, Percutaneous Endoscopic Approach (ICD-10-PCS; principal; 2016-10-05 10:30)
DX: K35.80 Unspecified acute appendicitis (principal); I10 Essential (primary) hypertension
CPT/HCPCS: 36415; 74177-TC; 80053; 81003; 82272; 85025; 85027; 87086; 88304-TC; 93005; 93010; 93880-TC; 94010; 94760; 97116-GP; 97161-GP; 99285-25; J1644

== ENCOUNTER 2017-09-01 20:44 | Emergency (ER) | payer OTHER ==
[2017-09-01 21:08] VITALS: BP 154/70; PULSE 62; TEMP 98.5
--- NOTE | 2017-09-01 21:25 | PDOC ---
History of Present Illness - General History Source: Patient Exam Limitations: No Limitations - History of Present Illness Initial Comments: 09/01/17 21:36 The patient is a 82 year old male with a significant past medical history of dementia, colon ca (treated with radiation seed placement) and hypertension, who presents to the emergency department s/p fall today. Patient had an unwitnessed fall today outside and came inside on his own telling the family that he fell and started complaining about left shoulder and clavicular pain. He denies chest pain, shortness of breath, headache and dizziness. He denies fever, chills, nausea, vomit, diarrhea, melena, hematochezia and constipation. He denies dysuria, frequency, urgency and hematuria. <Dyan Arreguin - Last Filed: 09/01/17 21:35> <Thelma Lainez - Last Filed: 09/02/17 02:09> - General Chief Complaint: Injury Stated Complaint: FALL/PAIN LEFT SHOULDER Time Seen by Provider: 09/01/17 20:51 Past History <Dyan Arreguin - Last Filed: 09/01/17 21:35> - Past Medical History Anemia: No Asthma: No Cancer: Yes (PROSTATE CA) Cardiac Disorders: No CVA: No COPD: No CHF: No Dementia: No Diabetes: No GI Disorders: Yes (DIVERTICULOSIS) Disorders: Yes (H/O PROSTATE CA WITH SEED IMPLANT) HTN: Yes Hypercholesterolemia: Yes Liver Disease: No Seizures: No Thyroid Disease: No - Surgical History Abdominal Surgery: No Appendectomy: No Cardiac Surgery: No Cholecystectomy: No Lung Surgery: No Neurologic Surgery: No Orthopedic Surgery: No - Suicide/Smoking/Psychosocial Hx Smoking Status: No Smoking History: Never smoked Have you smoked in the past 12 months: No Number of Cigarettes Smoked Daily: 0 Information on smoking cessation initiated: No Hx Alcohol Use: No Drug/Substance Use Hx: No Substance Use Type: None Hx Substance Use Treatment: No <Thelma Lainez - Last Filed: 09/02/17 02:09> - Past Medical History Allergies/Adverse Reactions: Allergies Allergy/AdvReac Type Severity Reaction Status Date / Time No Known Allergies Allergy Verified 09/01/17 21:02 Home Medications: Ambulatory Orders Amlodipine Besylate [Norvasc -] 10 mg PO DAILY 02/17/14 Tamsulosin HCl [Flomax -] 0.4 mg PO HS 02/17/14 Rosuvastatin Calcium [Crestor] 10 mg PO HS 10/04/16 Acetaminophen [Mapap] 500 mg PO Q6H PRN 10/05/16 Carvedilol 25 mg PO BID 10/05/16 Donepezil HCl 5 mg PO DAILY 10/05/16 Olmesartan/Hydrochlorothiazide [Olmesartan-Hctz 40-25 mg Tab] 1 each PO DAILY Oxycodone HCl/Acetaminophen [Percocet 5-325 mg Tablet] 1 - 2 tab PO Q6H #28 tab MDD 4 10/05/16 Review of Systems - Review of Systems Able to Perform ROS?: Yes Comments:: 09/01/17 21:36 CONSTITUTIONAL: Absent: fever, no chills, no fatigue EYES: Absent: visual changes ENT: Absent: ear pain, no sore throat CARDIOVASCULAR: Absent: chest pain, no palpitations RESPIRATORY: Absent: cough, no SOB GI: Absent: abdominal pain, no nausea, no vomiting, no constipation, no diarrhea GENITOURINARY: Absent: dysuria, no frequency, no hematuria MUSCULOSKELETAL: Present: left shoulder, left clavicle pain Absent: back pain, no myalgia SKIN: Absent: rash NEURO: Absent: headache <KoziyDyan - Last Filed: 09/01/17 21:35> *Physical Exam - Vital Signs Last Vital Signs Temp Pulse Resp BP Pulse Ox 98.5 F 62 14 154/70 100 09/01/17 21:06 09/01/17 21:06 09/01/17 21:06 09/01/17 21:06 09/01/17 21:06 - Physical Exam Comments: 09/01/17 21:37 GENERAL: Well developed, well nourished. Awake and alert. No acute distress. HEENT: Normocephalic, atraumatic. PERRLA, EOMI. No conjunctival pallor. Sclera are non- icteric. Moist mucous membranes. Oropharynx is clear. NECK: Supple. Full ROM. No JVD. Carotid pulses 2+ and symmetric, without bruits. No thyromegaly. No lymphadenopathy. CARDIOVASCULAR: Regular rate and rhythm. No murmurs, rubs, or gallops. Distal pulses are 2+ and symmetric. PULMONARY: No evidence of respiratory distress. Lungs clear to auscultation bilaterally. No wheezing, rales or rhonchi. ABDOMINAL: Soft. Non-tender. Non-distended. No rebound or guarding. No organomegaly. Normoactive bowel sounds. MUSCULOSKELETAL Normal range of motion at all joints. No bony deformities. No CVA tenderness. EXTREMITIES: +Left shoulder/clavicle tenderness. No cyanosis. No clubbing. No edema. No calf tenderness. SKIN: Warm and dry. Normal capillary refill. No rashes. No jaundice. NEUROLOGICAL: Alert, awake. No focal deficit. PSYCHIATRIC: Cooperative. Good eye contact. Appropriate mood and affect. <Dyan Arreguin - Last Filed: 09/01/17 21:35> - Vital Signs Last Vital Signs Temp Pulse Resp BP Pulse Ox 98.5 F 62 14 154/70 100 09/01/17 21:06 09/01/17 21:06 09/01/17 21:06 09/01/17 21:06 09/01/17 21:06 <Thelma Lainez - Last Filed: 09/02/17 02:09> Medical Decision Making - Medical Decision Making 09/02/17 02:05 ct scan of clavicle /[id number] is negative for dislocation or fracture <Thelma Lainez - Last Filed: 09/02/17 02:09> *DC/Admit/Observation/Transfer - Attestations Scribe Attestion: 09/01/17 21:38 Documentation prepared by LINDA Lazo, acting as director medical science for Thelma Lainez MD/. <Dyan Arreguin - Last Filed: 09/01/17 21:35> <Thelma Lainez - Last Filed: 09/02/17 02:09> Diagnosis at time of Disposition: Left shoulder pain Qualifiers: Chronicity: acute Qualified Code(s): M25.512 - Pain in left shoulder - Discharge Dispostion Disposition: HOME Condition at time of disposition: Stable - Referrals Referrals: Natalie Rubalcava MD [Primary Care Provider] - Reilly Finley MD [Staff Physician] - River Marlow MD [Staff Physician] - - Patient Instructions Printed Discharge Instructions: DI for Shoulder Pain Additional Instructions: You may wear your sling for comfort Use tylenol for naprosyn for pain If pain persists, follow up with orthopedist - Post Discharge Activity
[2017-09-02] MEDS ORDERED: NAPROXEN 500 MG TABLET (FP) PO ONE (01:59)
[2017-09-02] MEDS ORDERED: NAPROXEN 500 MG TABLET (FP) ONE (02:11)
== END 2017-09-02 02:16 | disposition home or self-care (01) ==
LOC: JER 20:44
DX: M25.512 Pain in left shoulder (principal); W18.39XA Other fall on same level, initial encounter; Y93.89 Activity, other specified; Y92.9 Unspecified place or not applicable; F03.90 Unspecified dementia, unspecified severity, without behavioral disturbance, psychotic disturbance, mood disturbance, and anxiety; Z85.038 Personal history of other malignant neoplasm of large intestine; I10 Essential (primary) hypertension; E78.00 Pure hypercholesterolemia, unspecified
CPT/HCPCS: 70450-TC; 73000-TC-LT; 73030-TC-LT; 73200-TC-RT; 99282-25

== ENCOUNTER 2018-09-17 11:01 | Emergency (ER) | payer OTHER ==
[2018-09-17 11:31] VITALS: TEMP 98.3; BMI 23.5
--- NOTE | 2018-09-17 12:45 | PDOC ---
History of Present Illness - General Chief Complaint: Blood Pressure Problem Stated Complaint: BLOOD PRESSURE PROBLEM (PCP SENT) Time Seen by Provider: 09/17/18 12:08 History Source: Patient, Family (Daughters present at bedside) Exam Limitations: Dementia, Language Barrier (Pt Kiswahili speaking. Interpretation provided by family. ) - History of Present Illness Initial Comments: HPI: 83 y/o male presenting to [facility] ER on referral from Dr. Zavala office with concern for hypertension to 220/90. Pt has a known history of HTN managed with Coreg and Amlodipine but has not been compliant with therapy. Pt has dementia and lives at home with elderly with Alzheimers. On arrival, the pt has no complaints, though interview has limited reliability as pt is only alert to person. Daughters present at bedside and report he is at his baseline. PCP: Dr. Rubalcava Medical Hx: - HTN - Anema, unspecified - Unspecified dementia without behavioral disturbance - Prostate CA - Lumbago - Thrombocytopenia - PAD - CAD - Unspecified hyperlipidemia Past History - Past Medical History Allergies/Adverse Reactions: Allergies Allergy/AdvReac Type Severity Reaction Status Date / Time No Known Allergies Allergy Verified 09/17/18 11:29 Home Medications: Ambulatory Orders Amlodipine Bes/Olmesartan Med [Carson 10-40 mg Tablet] 1 each PO DAILY 09/17/18 Amlodipine Besylate [Norvasc -] 10 mg PO DAILY 09/17/18 Aspirin 81 mg PO DAILY 09/17/18 Carvedilol [Coreg -] 12.5 mg PO BID 09/17/18 Donepezil HCl [Aricept] 5 mg PO DAILY 09/17/18 Hydrochlorothiazide [Hctz -] 25 mg PO DAILY 09/17/18 Memantine HCl [Namenda Xr] 14 mg PO DAILY 09/17/18 Olmesartan Medoxomil [Benicar (Nf)] 40 mg PO DAILY 09/17/18 Olmesartan/Amlodipin/Hcthiazid [Tribenzor 40-10-25 mg Tablet] 1 each PO DAILY Rosuvastatin Calcium [Crestor] 10 mg PO DAILY 09/17/18 Spironolactone [Aldactone] 25 mg PO DAILY 09/17/18 Tamsulosin HCl [Flomax] 0.4 mg PO HS 09/17/18 Anemia: No Asthma: No Cancer: Yes (PROSTATE CA) Cardiac Disorders: No CVA: No COPD: No CHF: No Dementia: No Diabetes: No GI Disorders: Yes (DIVERTICULOSIS) Disorders: Yes (H/O PROSTATE CA WITH SEED IMPLANT) HTN: Yes Hypercholesterolemia: Yes Liver Disease: No Seizures: No Thyroid Disease: No - Surgical History Abdominal Surgery: No Appendectomy: No Cardiac Surgery: No Cholecystectomy: No Lung Surgery: No Neurologic Surgery: No Orthopedic Surgery: No - Immunization History Immunization Up to Date: Yes - Suicide/Smoking/Psychosocial Hx Smoking Status: No Smoking History: Never smoked Have you smoked in the past 12 months: No Number of Cigarettes Smoked Daily: 0 Hx Alcohol Use: No Drug/Substance Use Hx: No Substance Use Type: None Hx Substance Use Treatment: No Review of Systems - Review of Systems Able to Perform ROS?: Yes Comments:: In addition to that documented in the HPI above, the additional ROS was obtained : Constitutional: Denies fevers or chills Eyes: Denies vision changes ENMT: Denies sore throat CV: Denies chest pain Resp: Denies SOB GI: Denies vomiting or diarrhea : Denies painful urination MSK: Denies recent trauma Skin: Denies new rashes Neuro: Denies new numbness or tingling or weakness Endocrine: Denies polyuria Heme: Denies bleeding or bruising *Physical Exam - Vital Signs Last Vital Signs Temp Pulse Resp BP Pulse Ox 98.3 F 57 L 18 145/79 98 09/17/18 11:29 09/17/18 11:29 09/17/18 11:29 09/17/18 11:29 09/17/18 11:29 - Physical Exam Comments: Constitutional: Well-developed, well-nourished adult male in no acute distress or obvious discomfort. Found standing next to hospital hallway bed. Alert and oriented to person only. Answered all questions appropriately and completely. Speech was non-labored, non-pressured. Head: Normocephalic. No obvious external signs of trauma. Eyes: Sclerae white. EARS: Hearing grossly intact. NOSE: No nasal discharge. Neck: Supple, trachea is midline. Cardiovascular: Regular rate and regular rhythm. No murmur, rubs, clicks, or gallops. Peripheral pulses: Radial pulses full. Respiratory: Breathing unlabored. Equal chest rise and fall. Clear to auscultation bilaterally. No stridor, no wheezing, no rhonchi. Gastrointestinal: abdomen is soft, non-tender, non-distended. Neuro: Alert and oriented to baseline. Moving all four extremities spontaneously. No focal deficits. Sensation to all four extremities intact. Proximal and distal strength 5/5. Medical Librarian strength 5/5 - equal and symmetric. Plantar flexion and dorsiflexion 5/5. Gait normal. Skin: Warm, dry, and intact. Psych: Affect: appropriate. Mood: normal. Moderate Sedation - Procedure Monitoring Vital Signs: Procedure Monitoring Vital Signs Temperature 98.3 F 09/17/18 11:29 Pulse Rate 57 L 09/17/18 11:29 Respiratory Rate 18 09/17/18 11:29 Blood Pressure 145/79 09/17/18 11:29 O2 Sat by Pulse Oximetry (%) 98 09/17/18 11:29 ED Treatment Course - LABORATORY CBC & Chemistry Diagram: 09/17/18 13:44 09/17/18 13:44 Medical Decision Making - Medical Decision Making *Reviewed vital signs, nursing notes, and prior visit documentation (if available). 83 y/o male presenting from Dr. Zavala office for management of hypertension and admission for assistance with placement. No complaints. Unrevealing physical exam. Triage and repeat vitals unremarkable for significant hypertension. Will withhold antihypertensive therapy at this time. Will obtain CBC, CMP, EKG, and CXR for admission. 14:47 Telephone page sent to physician covering for Dr. Salazar service. Dr. Rubalcava requested pt be admitted to this service. 15:52 Pts daughters both expressed concern about wait for admission and requirement for three days before placement. Independently telephoned Dr. Rubalcava and requested the pt be sent home. This practitioner was handed the daughters cell phone. Spoke with Dr. Rubalcava, who said he is comfortable with the pt being discharged home if blood pressures have improved. He will prescribe new antihypertensives. insurance agency sales manager spoke to family about options for outpatient placement. Family would like to pursue this process. Pts blood pressure has remained fair below level documented office without symptoms or requiring emergent medical management. Labs, CXR, and EKG were unremarkable for acute process or derangement. Provided return precautions. Daughters expressed verbal understanding. *DC/Admit/Observation/Transfer Diagnosis at time of Disposition: Hypertension Qualifiers: Hypertension type: essential hypertension Qualified Code(s): I10 - Essential ( primary) hypertension - Discharge Dispostion Disposition: HOME Condition at time of disposition: Good Decision to Admit order: No - Referrals Referrals: Natalie Rubalcava MD [Primary Care Provider] - - Patient Instructions Printed Discharge Instructions: DI for High Blood Pressure Additional Instructions: You were seen today for high blood pressure at Dr. Rubalcava's office. Your blood pressure checks have been normal while in the ED. Please follow up with Dr. Rubalcava within the next few days to insure your blood pressure remains controlled. Be sure to take your blood pressure medications as prescribed. Dr. Rubalcava has called in a new prescription to your pharmacy for you to sweet pickled fruit maker today. Go to the nearest emergency department if your condition worsens or you feel like you need additional emergency evaluation. Print Language: GREEK - Post Discharge Activity
--- NOTE | 2018-09-17 13:10 | PDOC ---
Attending Attestation - HPI HPI: 09/17/18 13:55 The patient is a 88 year old male with a significant PMH of dementia, colon ca and hypertension who presents to the emergency department with elevated blood pressure. As per patients family at bedside, the patient was sent to the ED by PCP( Dr Rubalcava) for elevated blood pressure during follow up visit earlier today. The patient denies any other symptoms or complaints. Documentation prepared by Petros Gonzalez, acting as medical collections for Mily Cordova MD. <Petros Gonzalez - Last Filed: 09/17/18 13:55> - Resident Resident Name: Alcon Levy - ED Attending Attestation I have performed the following: I have examined & evaluated the patient, The case was reviewed & discussed with the resident, I agree w/resident's findings & plan, Exceptions are as noted - Physicial Exam PE: 09/17/18 14:23 Constitutional: Well-developed, well-nourished, no acute distress Neck: Supple, trachea is midline. Cardiovascular: Regular rate and regular rhythm. No murmur, rubs, clicks, or gallops. Respiratory: Breathing unlabored. Equal chest rise and fall. Clear to auscultation bilaterally. Gastrointestinal: abdomen is soft, non-tender, non-distended. Neuro: Alert and oriented to baseline. Moving all four extremities spontaneously. No focal deficits. Sensation to all four extremities intact. Skin: Warm, dry, and intact. - Medical Decision Making 09/17/18 14:24 EKG - NSR rate of 60 bpm, axis nml, no st elevation or depression, t wave upright 09/17/18 16:05 Laboratory Tests 09/17/18 09/17/18 13:44 13:44 WBC 5.5 Hgb 13.1 Hct 41.3 Plt Count 126 L BUN 15 Creatinine 1.1 Pt waiting for admission Family members state they would prefer to get him placed in a skilled nursing through their PMD Will discharge to home <Mily Cordova - Last Filed: 09/18/18 11:13>
[2018-09-17 13:44] VITALS: BP 138/80; PULSE 58
[2018-09-17 13:57] LABS: BASO % 0.6 % (0-2.0); EOS % 0.2 % (0-4.5); HEMATOCRIT 41.3 % (35.4-49); HEMOGLOBIN 13.1 GM/dL (11.7-16.9); LYMPH % 23.1 % (8-40); MCH 28.2 pg (25.7-33.7); MCHC 31.7 g/dl (32.0-35.9); MEAN PLT VOLUME 9.8 fl (7.5-11.1); MONO % 6.2 % (3.8-10.2); NEUT % 69.9 % (42.8-82.8); PLATELET COUNT 126 K/MM3 (134-434); RBC 4.64 M/mm3 (4.00-5.60); RDW 13.3 % (11.9-15.9); WHITE BLOOD COUNT 5.5 K/mm3 (4.0-10.0)
[2018-09-17 14:29] LABS: ALBUMIN 3.8 g/dl (3.4-5.0); ALK PHOS 75 U/L (45-117); ANION GAP 5 MMOL/L (8-16); BILIRUBIN,TOTAL 0.5 mg/dL (0.2-1); BLOOD UREA NITROGEN 15 mg/dL (7-18); CALCIUM 8.9 mg/dL (8.5-10.1); CHLORIDE 104 mmol/L (98-107); CO2 29 mmol/L (21-32); CREATININE 1.1 mg/dL (0.55-1.3); GLUCOSE,RANDOM 100 mg/dL (74-106); POTASSIUM 3.7 mmol/L (3.5-5.1); SGOT/AST 27 U/L (15-37); SGPT/ALT 17 U/L (13-61); SODIUM 138 mmol/L (136-145); TOT PROT 7.7 g/dl (6.4-8.2)
--- NOTE | 2018-09-17 18:21 | EKG ---
Test Reason : Blood Pressure : / mmHG Vent. 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
== END 2018-09-17 16:25 | disposition home or self-care (01) ==
LOC: JER 11:01
DX: I10 Essential (primary) hypertension (principal); I25.10 Atherosclerotic heart disease of native coronary artery without angina pectoris; D64.9 Anemia, unspecified; F03.90 Unspecified dementia, unspecified severity, without behavioral disturbance, psychotic disturbance, mood disturbance, and anxiety; M54.5 Low back pain; D69.6 Thrombocytopenia, unspecified; I73.9 Peripheral vascular disease, unspecified; E78.5 Hyperlipidemia, unspecified; Z85.46 Personal history of malignant neoplasm of prostate
CPT/HCPCS: 36415; 71046-TC-FY; 80053; 85025; 93005; 93010; 99283-25

== ENCOUNTER 2018-12-10 10:59 | Inpatient (IN) | payer OTHER ==
--- NOTE | 2018-12-10 11:40 | PDOC ---
History of Present Illness - General Chief Complaint: Blood Pressure Problem Stated Complaint: SENT BY PCP/HYPERTENSION - History of Present Illness Initial Comments: Suresh Montes is an 83yo man with HTN, dementia who presents to the ED with his daughter due to hypertension and inability to care for himself at home. Per Mr Montes's daughtr, his PMD Dr Rubalcava recommended admission for BP control and possible evaluation for SNF placement in September. He was seen in the ED at that time, but the daughters felt it was taking too long to be admitted and requested to be sent home. The daughter states that Mr Montes does not like taking his medications, and he often only chooses one pill to take per day despite being prescribed several daily medications. He has an aide that set up his meds in a pill dispenser, but she believes that he often throws most of them away. His meds were changed last month, but she thinks that the dispenser still has the old meds in it at this point. The daughter also reports that her father has become increasingly confused over the past few months. Recently he has become lost within his apartment building and has been trying to get into other people's homes, thinking that they are his own apartment. His daughter is concerned that he is no longer able to care for himself appropriately due to the worsening dementia. Past History - Past Medical History Allergies/Adverse Reactions: Allergies Allergy/AdvReac Type Severity Reaction Status Date / Time No Known Allergies Allergy Verified 12/10/18 11:25 Home Medications: Ambulatory Orders Amlodipine Bes/Olmesartan Med [Carson 10-40 mg Tablet] 1 each PO DAILY 09/17/18 Amlodipine Besylate [Norvasc -] 10 mg PO DAILY 09/17/18 Aspirin 81 mg PO DAILY 09/17/18 Carvedilol [Coreg -] 12.5 mg PO BID 09/17/18 Donepezil HCl [Aricept] 5 mg PO DAILY 09/17/18 Hydrochlorothiazide [Hctz -] 25 mg PO DAILY 09/17/18 Memantine HCl [Namenda Xr] 14 mg PO DAILY 09/17/18 Olmesartan Medoxomil [Benicar (Nf)] 40 mg PO DAILY 09/17/18 Olmesartan/Amlodipin/Hcthiazid [Tribenzor 40-10-25 mg Tablet] 1 each PO DAILY Rosuvastatin Calcium [Crestor] 10 mg PO DAILY 09/17/18 Spironolactone [Aldactone] 25 mg PO DAILY 09/17/18 Tamsulosin HCl [Flomax] 0.4 mg PO HS 09/17/18 Anemia: No Asthma: No Cancer: Yes (PROSTATE CA) Cardiac Disorders: No CVA: No COPD: No CHF: No Dementia: No Diabetes: No GI Disorders: Yes (DIVERTICULOSIS) Disorders: Yes (H/O PROSTATE CA WITH SEED IMPLANT) HTN: Yes Hypercholesterolemia: Yes Liver Disease: No Seizures: No Thyroid Disease: No - Surgical History Abdominal Surgery: No Appendectomy: No Cardiac Surgery: No Cholecystectomy: No Lung Surgery: No Neurologic Surgery: No Orthopedic Surgery: No - Immunization History Immunization Up to Date: Yes - Suicide/Smoking/Psychosocial Hx Smoking Status: No Smoking History: Never smoked Have you smoked in the past 12 months: No Number of Cigarettes Smoked Daily: 0 Information on smoking cessation initiated: No Hx Alcohol Use: No Drug/Substance Use Hx: No Substance Use Type: None Hx Substance Use Treatment: No Review of Systems - Review of Systems Comments:: General: No fevers, no chills, no weight or appetite change, no malaise HEENT: No changes in vision, no changes in hearing, no congestion, no sore throat CV: No chest pain, no palpitations, no LE edema Pulm: No SOB, no cough, no wheezing GI: No nausea or vomiting, no change in bowel habits, no melena : No frequency, no urgency, no dysuria Musc: No back pain, no joint swelling, no recent injury Skin: No rash, no lesions, no erythema Endo: No excessive thirst, no heat/cold intolerance Heme: No unusual bruising or bleeding, no swollen glands Neuro: No syncope, no numbness/tingling, no focal weakness Vasc: No claudication Psych: No recent change in mood, no SI or HI *Physical Exam - Vital Signs Last Vital Signs Temp Pulse Resp BP Pulse Ox 98.0 F 63 16 179/71 H 100 12/10/18 11:23 12/10/18 11:23 12/10/18 11:23 12/10/18 11:23 12/10/18 11:23 - Physical Exam Comments: General: Comfortable, no acute distress HEENT: PERRL, EOMI, MMM, voice normal, normal neck ROM Cards: RRR, no murmur appreciated Pulm: Comfortable on room air, clear to auscultation bilaterally Abd: Soft, nontender, nondistended Ext: Atraumatic. No LE edema. ROM intact Vasc: Extremities WWP. Skin: Normal color, no rashes or lesions Neuro: Awake and alert, CN grossly intact, normal speech, motor/sensory grossly intact and symmetric Psych: Mood appropriate to situation ED Treatment Course - LABORATORY CBC & Chemistry Diagram: 12/10/18 12:16 12/10/18 12:16 Medical Decision Making - Medical Decision Making 12/10/18 12:20 Suresh Montes is an 83yo man with HTN, dementia who presents to the ED with his daughter due to concerns for poor BP control due to medication non-compliance. Per his daughter, he has also had increasing difficulty at home due to his dementia and is no longer able to care for himself appropriately at home. - BP noted to be 170's/90's on arrival. Asymptomatic - EKG completed. NSR with 1st degree block, HR 64, no ST or t-wave abnormalities - CBC, chemistry, CXR ordered for likely admission - Call placed to Dr Rubalcava, pt's PMD. Did not reach, will try again. 12/10/18 13:16 - Spoke to Dr Rubalcava. Agrees that Mr Montes needs to be admitted for BP monitoring and control, severe dementia. States the daughter has found Mr Montes out on the street; unsafe to go home. - Will contact Dr Pendleton when labs are completed 12/10/18 13:44 - Labs unremarkable - Spoke to Dr Amaya regarding admission. Will admit to tele. Requesting Dr Lopez be consulted for HTN. Discussed with Dr Cordova. Kesha Huang PGY1 *DC/Admit/Observation/Transfer Diagnosis at time of Disposition: Advanced dementia Hypertension Qualifiers: Hypertension type: unspecified Qualified Code(s): I10 - Essential (primary) hypertension - Discharge Dispostion Decision to Admit order: Yes - Referrals Referrals: Natalie Rubalcava MD [Primary Care Provider] - - Patient Instructions - Post Discharge Activity
--- NOTE | 2018-12-10 12:26 | PDOC ---
Attending Attestation - Medical Decision Making 12/10/18 13:[address] Pendleton at [phone] for admission, waiting for a call back. <Shannan Silverman - Last Filed: 12/10/18 13:30> - Resident Resident Name: Kesha Huang - ED Attending Attestation I have performed the following: I have examined & evaluated the patient, The case was reviewed & discussed with the resident, I agree w/resident's findings & plan, Exceptions are as noted - HPI HPI: 12/10/18 12:24 Mr Alvin Montes is an 83 yo M who presents to the ER with a complaint of uncontrolled blood pressures Pt has a h/o HTN and dementia Pt has been taking his antihypertensives but continues to be very hypertensive Pt has had worsening dementia, increasingly confused Pt has gotten confused about where he lives, has been going to other people's apartment doors and banging on their doors Pt has been kicked out of his apartment - Physicial Exam PE: 12/10/18 12:23 GENERAL: The patient is in no acute distress. ENT: Ears normal, nares patent, oropharynx clear without exudates. Moist mucous membranes. NECK: Normal range of motion, supple, no nuchal rigidity LUNGS: Breath sounds equal, clear to auscultation bilaterally. No wheezes, and no crackles. HEART:Regular rate and rhythm, normal S1 and S2 without murmur, rub or gallop. ABDOMEN: Soft, nontender, normoactive bowel sounds. EXTREMITIES: Normal range of motion, no edema. NEUROLOGICAL: Cranial nerves II through XII grossly intact. Normal speech. No focal neurological deficits. SKIN: Warm, Dry, normal turgor, no rashes or lesions noted. - Medical Decision Making 12/10/18 12:22 EKG: NSR rate of 64 bpm, axis nml, intervals abn - pr: 222ms (prolonged), QRS: 88ms, QTc: 410ms, LVH, jpoint elevation v2, no pathologic q waves, poor r wave progression Case management seeing pt in the ER now 12/11/18 14:17 Laboratory Tests 12/10/18 12/10/18 12:16 12:16 WBC 6.1 Hgb 13.3 Hct 40.3 Plt Count 132 L BUN 18 Creatinine 1.1 Pt will be admitted for worsening dementia, increasing confusion Clinical Impression: dementia, initial presentation hypertension, initial presentation <Mily Cordova - Last Filed: 12/11/18 14:19>
[2018-12-10 12:40] LABS: BASO % 0.8 % (0-2.0); EOS % 0.8 % (0-4.5); HEMATOCRIT 40.3 % (35.4-49); HEMOGLOBIN 13.3 GM/dL (11.7-16.9); LYMPH % 20.1 % (8-40); MCH 29.1 pg (25.7-33.7); MCHC 33.1 g/dl (32.0-35.9); MEAN CELL VOLUME 87.8 fl (80-96); MEAN PLT VOLUME 9.8 fl (7.5-11.1); MONO % 7.7 % (3.8-10.2); NEUT % 70.6 % (42.8-82.8); PLATELET COUNT 132 K/MM3 (134-434); RBC 4.59 M/mm3 (4.00-5.60); RDW 13.1 % (11.9-15.9); WHITE BLOOD COUNT 6.1 K/mm3 (4.0-10.0)
[2018-12-10 13:13] LABS: MAGNESIUM 2.3 mg/dL (1.8-2.4); PHOSPHOROUS 2.8 mg/dL (2.5-4.9)
[2018-12-10 13:19] LABS: ALBUMIN 3.6 g/dl (3.4-5.0); ALK PHOS 75 U/L (45-117); ANION GAP 7 MMOL/L (8-16); BILIRUBIN,TOTAL 0.5 mg/dL (0.2-1); BLOOD UREA NITROGEN 18 mg/dL (7-18); CALCIUM 8.9 mg/dL (8.5-10.1); CHLORIDE 104 mmol/L (98-107); CO2 30 mmol/L (21-32); CREATININE 1.1 mg/dL (0.55-1.3); GLUCOSE,RANDOM 94 mg/dL (74-106); POTASSIUM 4.3 mmol/L (3.5-5.1); SGOT/AST 32 U/L (15-37); SGPT/ALT 18 U/L (13-61); SODIUM 140 mmol/L (136-145); TOT PROT 7.5 g/dl (6.4-8.2)
[2018-12-10] MEDS ORDERED: CARVEDILOL 12.5 MG TABLET (FP) ONE (15:54)
--- NOTE | 2018-12-10 15:56 | HP ---
Admitting History and Physical - Primary Care Physician PCP: Kiya Pendleton - Admission Chief Complaint: admitted for HTN and wandering History of Present Illness: 83 yr old male htn and dementia non complaint with medication lives alone with aide sent in for elevated BP and wandering st helenian speaking only History Source: Medical Record Limitations to Obtaining History: Dementia, Language Barrier - Past Medical History Cardiovascular: Yes: HTN Renal/: Yes: Cancer (Prostate cancer- radiation seed placement) - Smoking History Smoking history: Never smoked Have you smoked in the past 12 months: No Aproximately how many cigarettes per day: 0 - Alcohol/Substance Use Hx Alcohol Use: No Home Medications - Allergies Allergies/Adverse Reactions: Allergies Allergy/AdvReac Type Severity Reaction Status Date / Time No Known Allergies Allergy Verified 12/10/18 11:25 - Home Medications Home Medications: Ambulatory Orders Amlodipine Bes/Olmesartan Med [Carson 10-40 mg Tablet] 1 each PO DAILY 09/17/18 Amlodipine Besylate [Norvasc -] 10 mg PO DAILY 09/17/18 Aspirin 81 mg PO DAILY 09/17/18 Carvedilol [Coreg -] 12.5 mg PO BID 09/17/18 Donepezil HCl [Aricept] 5 mg PO DAILY 09/17/18 Hydrochlorothiazide [Hctz -] 25 mg PO DAILY 09/17/18 Memantine HCl [Namenda Xr] 14 mg PO DAILY 09/17/18 Olmesartan Medoxomil [Benicar (Nf)] 40 mg PO DAILY 09/17/18 Olmesartan/Amlodipin/Hcthiazid [Tribenzor 40-10-25 mg Tablet] 1 each PO DAILY Rosuvastatin Calcium [Crestor] 10 mg PO DAILY 09/17/18 Spironolactone [Aldactone] 25 mg PO DAILY 09/17/18 Tamsulosin HCl [Flomax] 0.4 mg PO HS 09/17/18 Review of Systems Unable to obtain ROS, reason: dementia Physical Examination Vital Signs: Vital Signs Temperature 98.7 F 12/10/18 15:35 Pulse Rate 68 12/10/18 15:35 Respiratory Rate 15 12/10/18 15:35 Blood Pressure 169/93 12/10/18 15:35 O2 Sat by Pulse Oximetry (%) 98 12/10/18 11:54 Constitutional: Yes: Calm Cardiovascular: Yes: Regular Rate and Rhythm, S1, S2 Respiratory: Yes: CTA Bilaterally Gastrointestinal: Yes: Normal Bowel Sounds, Soft Edema: No Neurological: Yes: Alert Labs: CBC, BMP 12/10/18 12:16 12/10/18 12:16 Imaging - Results Chest X-ray: Report Reviewed (no pulm disease) Problem List - Problems (1) Advanced dementia Assessment/Plan: psych snf placement- wandering dvtppx PT Code(s): F03.90 - UNSPECIFIED DEMENTIA WITHOUT BEHAVIORAL DISTURBANCE (2) Hypertension Assessment/Plan: coreg 12.5mg bid norvasc 10mg cardiology dr [facility] Code(s): I10 - ESSENTIAL (PRIMARY) HYPERTENSION Qualifiers: Hypertension type: unspecified Qualified Code(s): I10 - Essential (primary ) hypertension (3) HLD (hyperlipidemia) Assessment/Plan: crestor Code(s): E78.5 - HYPERLIPIDEMIA, UNSPECIFIED
--- NOTE | 2018-12-10 17:36 | CON.CARD ---
Consult Consult Specialty:: Cardiology Referred by:: Medicine Reason for Consultation:: HTN - History of Present Illness Chief Complaint: HTN History of Present Illness: 83M h/o HTN, dementia p/w HTN, wandering with plan for higher level of care. Noted history of noncompliance with medication and BP 220/90 in office. No chest pain, palps, dizziness, dypsnea, edema. - Past Medical History Cardio/Vascular: Yes: HTN Renal/: Yes: Cancer (Prostate cancer- radiation seed placement) - Alcohol/Substance Use Hx Alcohol Use: No - Smoking History Smoking history: Never smoked Have you smoked in the past 12 months: No Aproximately how many cigarettes per day: 0 Home Medications - Allergies Allergies/Adverse Reactions: Allergies Allergy/AdvReac Type Severity Reaction Status Date / Time No Known Allergies Allergy Verified 12/10/18 11:25 - Home Medications Home Medications: Ambulatory Orders Amlodipine Bes/Olmesartan Med [Carson 10-40 mg Tablet] 1 each PO DAILY 09/17/18 Amlodipine Besylate [Norvasc -] 10 mg PO DAILY 09/17/18 Aspirin 81 mg PO DAILY 09/17/18 Carvedilol [Coreg -] 12.5 mg PO BID 09/17/18 Donepezil HCl [Aricept] 5 mg PO DAILY 09/17/18 Hydrochlorothiazide [Hctz -] 25 mg PO DAILY 09/17/18 Memantine HCl [Namenda Xr] 14 mg PO DAILY 09/17/18 Olmesartan Medoxomil [Benicar (Nf)] 40 mg PO DAILY 09/17/18 Olmesartan/Amlodipin/Hcthiazid [Tribenzor 40-10-25 mg Tablet] 1 each PO DAILY Rosuvastatin Calcium [Crestor] 10 mg PO DAILY 09/17/18 Spironolactone [Aldactone] 25 mg PO DAILY 09/17/18 Tamsulosin HCl [Flomax] 0.4 mg PO HS 09/17/18 Family Disease History - Family Disease History Family History: Unable to Obtain (dementia) Review of Systems - Review of Systems Constitutional: reports: No Symptoms Eyes: reports: No Symptoms HENT: reports: No Symptoms Neck: reports: No Symptoms Cardiovascular: reports: No Symptoms Respiratory: reports: No Symptoms Gastrointestinal: reports: No Symptoms Genitourinary: reports: No Symptoms Musculoskeletal: reports: No Symptoms Integumentary: reports: No Symptoms Neurological: reports: No Symptoms Endocrine: reports: No Symptoms Hematology/Lymphatic: reports: No Symptoms Psychiatric: reports: No Symptoms Vital Signs: Vital Signs Temperature 98.7 F 12/10/18 15:35 Pulse Rate 67 12/10/18 16:51 Respiratory Rate 15 12/10/18 15:35 Blood Pressure 146/80 12/10/18 16:51 O2 Sat by Pulse Oximetry (%) 98 12/10/18 11:54 Constitutional: Yes: No Distress, Calm Eyes: Yes: Conjunctiva Clear, EOM Intact HENT: Yes: Atraumatic, Normocephalic Neck: Yes: Supple, Trachea Midline Respiratory: Yes: Regular, CTA Bilaterally Gastrointestinal: Yes: Normal Bowel Sounds, Soft Cardiovascular: Yes: Regular Rate and Rhythm JVD: No Carotid Bruit: No PMI: Non-Displaced Heart Sounds: Yes: S1, S2 Musculoskeletal: No: Back Pain Extremities: No: Cold Edema: No Peripheral Pulses WNL: Yes Peripheral Pulses: 2+ Left Doralis Pedis, 2+ Right Dorsalis Pedis Integumentary: No: Jaundice Neurological: Yes: Alert, Oriented Psychiatric: No: Agitated - Other Data Labs, Other Data: CBC, BMP 12/10/18 12:16 12/10/18 12:16 Assessment/Plan EKG: sinus, nl intervals, no ischemic changes 83M h/o HTN, dementia p/w HTN, wandering HTN - restarted home meds with improvement in BP - likely noncompliance - continue current meds, monitor BP dementia - likely SNF placement, manage per primary HLD - cont statin
--- NOTE | 2018-12-10 19:02 | HOSP ---
Physical Examination Vital Signs: Vital Signs Temperature 98.7 F 12/10/18 15:35 Pulse Rate 67 12/10/18 16:51 Respiratory Rate 15 12/10/18 15:35 Blood Pressure 146/80 12/10/18 16:51 O2 Sat by Pulse Oximetry (%) 98 12/10/18 11:54 Labs: CBC, BMP 12/10/18 12:16 12/10/18 12:16 Hospitalist Encounter Assessment: called by RN to assess patient, for 1:1. pt Luxembourgish speaking, RN assisted with translation, pt with dementia, pt alert, x1, confused, pt states he is waiting for someone and will be leaving to go home tonight. pt high risk for elopement, will need 1:1 for safety.
[2018-12-10] MEDS ORDERED: HALOPERIDOL 1 MG TABLET (FP) PO ONE (19:45)
[2018-12-10] MEDS ORDERED: HALOPERIDOL LACTATE 5 MG/ML IM ONE ×2 (20:15→21:59)
[2018-12-10 20:34] VITALS: BMI 25.7
[2018-12-10] MEDS: CARVEDILOL 12.5 MG TABLET (FP) PO SCH (21:33)
[2018-12-10] MEDS: MEMANTINE HCL 10 MG TABLET (FP) PO SCH (21:33)
[2018-12-10] MEDS: HEPARIN NA (PORCINE) 5,000 UNITS/ML 1ML VIAL SQ SCH (21:33)
[2018-12-10] MEDS: ROSUVASTATIN CA 10 MG TABLET (FP) PO SCH (21:33)
[2018-12-10] MEDS ORDERED: CARVEDILOL 12.5 MG TABLET (FP) PO SCH (22:00)
--- NOTE | 2018-12-10 22:48 | PN ---
Mental Health Exam - Mental Status Exam Alert and Oriented to: Time (DISORIENTATED BY 3, ) Cognitive Function: Impaired Patient Appearance: Well Groomed Mood: Euthymic Affect: Appropriate Patient Behavior: Passive (CURRENTLY, BUT REPORT A ELOPE ATTEMPT. ), Wandering Speech Pattern: Clear (SPEAKS CUBAN), Rambling Voice Loudness: Mildly Soft/Quiet Thought Process: Circumstantial, Disorganized, Disoriented Thought Disorder: Not Present Hallucinations: None Suicidal Ideation: None Homicidal Ideation: None Insight/Judgement: Poor Sleep: Fair Appetite: Fair Muscle strength/Tone: Normal Gait/Station: Deferred (FOR CLOCK TEST COMPLETE 1/2 [place] WITH JUMBLED 3 NUMBERS 6, 7, 5, 3, 0)
--- NOTE | 2018-12-10 22:54 | PN ---
Progress Note, Physician Chief Complaint: cLIENT IS A 83 YO MALE WITH A WANDERING EPISODE TONIGHT WHERE HE IS INITIALLY RX HALDOL 2MG IM WITH POOR EFFECT, STAT HALDOL 10MG AT 10PM. CLIENT IS CURRENTLY PASSIVE, EUTHYMIS MOOD, C-OPERATIVE WITH SECURITY CONSTANT OBSERVATION AT FOOT OF HIS BED, SPEAKS IN [place] ONLY. NO MECHANICAL RESTRAINTS. hE STATED HE FEELS "FINE". aLERT STATED HE WILL "SLEEP LATER WHEN HE IS TIRED". pER NURSE AND SECURITY HE TENDS TO WANDER. hI DAUGHTER VISITS DAILY, IS SEEKING HIGHER LEVEL OF CARE THAN ASSISTANCE IN HOME DUE TO DAYTIME WANDERING. - Current Medication List Current Medications: Active Medications Amlodipine Besylate (Norvasc -) 10 mg PO DAILY [facility] Carvedilol (Coreg -) 12.5 mg PO BID [facility] Last Admin: 12/10/18 21:33 Dose: 12.5 mg Donepezil HCl (Aricept -) 5 mg PO HS [facility] Heparin Sodium (Porcine) (Heparin -) 5,000 unit SQ BID [facility] Last Admin: 12/10/18 21:33 Dose: Not Given Memantine (Namenda -) 10 mg PO BID [facility] Last Admin: 12/10/18 21:33 Dose: 10 mg Rosuvastatin Calcium (Crestor -) 10 mg PO HS [facility] Last Admin: 12/10/18 21:33 Dose: 10 mg Tamsulosin HCl (Flomax -) 0.4 mg PO DAILY@0830 [facility] Valsartan (Diovan -) 80 mg PO DAILY [facility] - Objective Vital Signs: Vital Signs Temperature 98.4 F 12/10/18 18:00 Pulse Rate 64 12/10/18 18:00 Respiratory Rate 18 12/10/18 18:00 Blood Pressure 146/74 12/10/18 18:00 O2 Sat by Pulse Oximetry (%) 98 12/10/18 18:00 Psychiatric: Yes: Alert, Oriented (DISORIENTATED BY 3) Additional Findings/Remarks: SEE ASSESSMENT. Labs: CBC, BMP 12/10/18 12:16 12/10/18 12:16
[2018-12-11 08:22] LABS: HEMATOCRIT 40.8 % (35.4-49); HEMOGLOBIN 13.2 GM/dL (11.7-16.9); MCH 28.2 pg (25.7-33.7); MCHC 32.5 g/dl (32.0-35.9); MEAN CELL VOLUME 86.7 fl (80-96); MEAN PLT VOLUME 9.8 fl (7.5-11.1); PLATELET COUNT 140 K/MM3 (134-434); RDW 13.4 % (11.9-15.9); WHITE BLOOD COUNT 6.2 K/mm3 (4.0-10.0)
[2018-12-11 08:29] LABS: ALBUMIN 3.9 g/dl (3.4-5.0); ALK PHOS 79 U/L (45-117); ANION GAP 7 MMOL/L (8-16); BILIRUBIN,TOTAL 0.6 mg/dL (0.2-1); BLOOD UREA NITROGEN 17 mg/dL (7-18); CALCIUM 9.4 mg/dL (8.5-10.1); CHLORIDE 104 mmol/L (98-107); CHOLESTEROL 207 mg/dL (50-200); CO2 28 mmol/L (21-32); CREATININE 1.1 mg/dL (0.55-1.3); GLUCOSE,RANDOM 106 mg/dL (74-106); HDL CHOLESTEROL 79 mg/dL (40-60); POTASSIUM 3.8 mmol/L (3.5-5.1); SGOT/AST 42 U/L (15-37); SGPT/ALT 17 U/L (13-61); SODIUM 139 mmol/L (136-145); TOT PROT 7.9 g/dl (6.4-8.2); TRIGLYCERIDES 51 mg/dL (0-150)
[2018-12-11] MEDS: HEPARIN NA (PORCINE) 5,000 UNITS/ML 1ML VIAL SQ SCH ×2 (10:08→22:19)
[2018-12-11] MEDS: VALSARTAN 80 MG TABLET (UD) PO SCH (10:09)
[2018-12-11] MEDS: CARVEDILOL 12.5 MG TABLET (FP) PO SCH ×2 (10:09→22:19)
[2018-12-11] MEDS: MEMANTINE HCL 10 MG TABLET (FP) PO SCH ×2 (10:09→22:20)
[2018-12-11] MEDS: amLODIPine BESYLATE 10 MG TABLET (FP) PO SCH (10:09)
[2018-12-11] MEDS: TAMSULOSIN HCL 0.4 MG CAP PO SCH (10:09)
[2018-12-11] MEDS ORDERED: HALOPERIDOL LACTATE 5 MG/ML IM PRN (11:10)
--- NOTE | 2018-12-11 11:11 | PN ---
Progress Note, Physician Chief Complaint: BEDSIDE 1:1 FOR FEAR OF ALOPEMENT PATIENT IS ASLEEP NAD - Current Medication List Current Medications: Active Medications Amlodipine Besylate (Norvasc -) 10 mg PO DAILY [facility] Last Admin: 12/11/18 10:09 Dose: 10 mg Carvedilol (Coreg -) 12.5 mg PO BID [facility] Last Admin: 12/11/18 10:09 Dose: 12.5 mg Donepezil HCl (Aricept -) 5 mg PO [facility] Heparin Sodium (Porcine) (Heparin -) 5,000 unit SQ BID [facility] Last Admin: 12/11/18 10:08 Dose: 5,000 unit Memantine (Namenda -) 10 mg PO BID [facility] Last Admin: 12/11/18 10:09 Dose: 10 mg Rosuvastatin Calcium (Crestor -) 10 mg PO [facility] Last Admin: 12/10/18 21:33 Dose: 10 mg Tamsulosin HCl (Flomax -) 0.4 mg PO DAILY@0830 [facility] Last Admin: 12/11/18 10:09 Dose: 0.4 mg Valsartan (Diovan -) 80 mg PO DAILY [facility] Last Admin: 12/11/18 10:09 Dose: 80 mg - Objective Vital Signs: Vital Signs Temperature 98.7 F 12/11/18 09:00 Pulse Rate 65 12/11/18 09:00 Respiratory Rate 18 12/11/18 09:00 Blood Pressure 146/85 12/11/18 09:00 O2 Sat by Pulse Oximetry (%) 98 12/10/18 21:00 Constitutional: Yes: No Distress Eyes: Yes: WNL HENT: Yes: WNL Neck: Yes: WNL Cardiovascular: Yes: Pulse Irregular Respiratory: Yes: WNL Gastrointestinal: Yes: WNL Genitourinary: Yes: Incontinence Musculoskeletal: Yes: Muscle Weakness Edema: No Peripheral Pulses WNL: Yes Integumentary: Yes: WNL Wound/Incision: Yes: Clean/Dry Neurological: Yes: Confusion, Pre-Existing Deficit Labs: CBC, BMP 12/11/18 07:00 12/11/18 07:00 Problem List - Problems (1) Advanced dementia Code(s): F03.90 - UNSPECIFIED DEMENTIA WITHOUT BEHAVIORAL DISTURBANCE (2) HLD (hyperlipidemia) Code(s): E78.5 - HYPERLIPIDEMIA, UNSPECIFIED (3) Hypertension Code(s): I10 - ESSENTIAL (PRIMARY) HYPERTENSION Qualifiers: Hypertension type: unspecified Qualified Code(s): I10 - Essential (primary ) hypertension Assessment/Plan MONITOR LABS 1:1 FOR DEMENTA SAFETY PLACEMENT TO SNF FALL RISKS
--- NOTE | 2018-12-11 12:09 | CON.NEURO ---
Consult - History of Present Illness History of Present Illness: Covering DR GUEVARA 83 yo M who presents to the ER with a complaint of uncontrolled blood pressures. Pt has a h/o HTN and dementia, unclear if compliant with RX Pt has had worsening dementia, increasingly confused, noted to be wandering Pt has gotten confused about where he lives, has been going to other people's apartment doors and banging on their doors. knows name, not year or place, follow basic commands last HD CT 08/30 : moderate white mater changes - Past Medical History Cardio/Vascular: Yes: HTN Renal/: Yes: Cancer (Prostate cancer- radiation seed placement) - Alcohol/Substance Use Hx Alcohol Use: No - Smoking History Smoking history: Never smoked Have you smoked in the past 12 months: No Aproximately how many cigarettes per day: 0 Home Medications - Allergies Allergies/Adverse Reactions: Allergies Allergy/AdvReac Type Severity Reaction Status Date / Time No Known Allergies Allergy Verified 12/10/18 11:25 - Home Medications Home Medications: Ambulatory Orders Amlodipine Bes/Olmesartan Med [Carson 10-40 mg Tablet] 1 each PO DAILY 09/17/18 Amlodipine Besylate [Norvasc -] 10 mg PO DAILY 09/17/18 Aspirin 81 mg PO DAILY 09/17/18 Carvedilol [Coreg -] 12.5 mg PO BID 09/17/18 Donepezil HCl [Aricept] 5 mg PO DAILY 09/17/18 Hydrochlorothiazide [Hctz -] 25 mg PO DAILY 09/17/18 Memantine HCl [Namenda Xr] 14 mg PO DAILY 09/17/18 Olmesartan Medoxomil [Benicar (Nf)] 40 mg PO DAILY 09/17/18 Olmesartan/Amlodipin/Hcthiazid [Tribenzor 40-10-25 mg Tablet] 1 each PO DAILY Rosuvastatin Calcium [Crestor] 10 mg PO DAILY 09/17/18 Spironolactone [Aldactone] 25 mg PO DAILY 09/17/18 Tamsulosin HCl [Flomax] 0.4 mg PO HS 09/17/18 Physical Exam-Neuro Vital Signs: Vital Signs Temperature 98.7 F 12/11/18 09:00 Pulse Rate 65 12/11/18 09:00 Respiratory Rate 18 12/11/18 09:00 Blood Pressure 146/85 12/11/18 09:00 O2 Sat by Pulse Oximetry (%) 98 12/10/18 21:00 Labs: CBC, BMP 12/11/18 07:00 12/11/18 07:00 - Neuro Exam Level Of Consciousness: Yes: Alert (awake, does not know place, yr, follows 1 steps, not complex crossed commands, pleasant , no focal weakness ) Imaging - Results Cat Scan: Report Reviewed, Image Reviewed Problem List - Problems (1) Advanced dementia Code(s): F03.90 - UNSPECIFIED DEMENTIA WITHOUT BEHAVIORAL DISTURBANCE (2) Hypertension Code(s): I10 - ESSENTIAL (PRIMARY) HYPERTENSION Qualifiers: Hypertension type: unspecified Qualified Code(s): I10 - Essential (primary ) hypertension Assessment/Plan 83 yo M who presents to the ER with a complaint of uncontrolled blood pressures. Pt has a h/o HTN and dementia, unclear if compliant with RX Pt has had worsening dementia, increasingly confused, noted to be wandering Pt has gotten confused about where he lives, has been going to other people's apartment doors and banging on their doors. knows name, not year or place, follow basic commands last HD CT 08/30 : moderate white mater changes AP : Progressive dementia , could be fronto-temporal vs vascular vs ALZ in setting of uncontrolled hypertension BP control B12 and TSH NL CT HD regardless will needs retirement facility planning DR ARREDONDO
--- NOTE | 2018-12-11 13:20 | PN ---
Progress Note (short form) - Note Progress Note: s: no cp sob palps dizzy o: Vital Signs Period Temp Pulse Resp BP Sys/Padilla Pulse Ox Last 24 Hr 98.4 F-98.8 F 64-68 15-20 146-169/61-93 98-99 Constitutional: Yes: No Distress, Calm Eyes: Yes: Conjunctiva Clear Respiratory: Yes: Regular, CTA Bilaterally Gastrointestinal: Yes: Normal Bowel Sounds, Soft Cardiovascular: Yes: Regular Rate and Rhythm JVD: No Heart Sounds: Yes: S1, S2 Extremities: No: Cold Edema: No Peripheral Pulses: 2+ Left Doralis Pedis, 2+ Right Dorsalis Pedis Integumentary: No: Jaundice Neurological: Yes: Alert Psychiatric: No: Agitated Current Medications Generic Name Dose Route Start Last Admin Trade Name Freq PRN Reason Stop Dose Admin Amlodipine Besylate 10 mg 12/11/18 10:00 12/11/18 10:09 Norvasc - PO 10 mg DAILY MACIEL Administration Carvedilol 12.5 mg 12/10/18 22:00 12/11/18 10:09 Coreg - PO 12.5 mg BID MACIEL Administration Donepezil HCl 5 mg 12/11/18 22:00 Aricept - PO HS [facility] Haloperidol 5 mg 12/11/18 11:10 Haldol Injection (Fast Acting) - IM Q6H PRN ANXIETY Heparin Sodium (Porcine) 5,000 unit 12/10/18 22:00 12/11/18 10:08 Heparin - SQ 5,000 unit BID [facility]IEL Administration Memantine 10 mg 12/10/18 22:00 12/11/18 10:09 Namenda - PO 10 mg BID [facility]IEL Administration Olanzapine 2.5 mg 12/11/18 22:00 Zyprexa - PO HS [facility] Rosuvastatin Calcium 10 mg 12/10/18 22:00 12/10/18 21:33 Crestor - PO 10 mg HS [facility] Administration Tamsulosin HCl 0.4 mg 12/11/18 08:30 12/11/18 10:09 Flomax - PO 0.4 mg DAILY@0830 [facility] Administration Valsartan 80 mg 12/11/18 10:00 12/11/18 10:09 Diovan - PO 80 mg DAILY [facility] Administration CBC, BMP 12/11/18 07:00 12/11/18 07:00 Assessment/Plan EKG: sinus, nl intervals, no ischemic changes 83M h/o HTN, dementia p/w HTN, wandering HTN - restarted home meds with improvement in BP dementia - likely SNF placement, manage per primary HLD - cont statin
--- NOTE | 2018-12-11 15:25 | CON.PSY ---
Psychiatry Consult Chief Complaint: 83 year old Male admitted with SEvere DEmentia admitted because is unable to take care of him . Patient sen for Psych eval. He essentially walks around cand an elopement risk. ON 1:1 for wandering. Symptoms: reports: Memory Impairment - Previous Psychiatric Treatment Outpatient: None Inpatient: None - Previous Substance Abuse Treatment Outpatient: None Inpatient: None - Current Medications Current Medications: Active Medications Amlodipine Besylate (Norvasc -) 10 mg PO DAILY [facility] Last Admin: 12/11/18 10:09 Dose: 10 mg Carvedilol (Coreg -) 12.5 mg PO BID [facility] Last Admin: 12/11/18 10:09 Dose: 12.5 mg Donepezil HCl (Aricept -) 5 mg PO [facility] Haloperidol (Haldol Injection (Fast Acting) -) 5 mg IM Q6H PRN PRN Reason: ANXIETY Heparin Sodium (Porcine) (Heparin -) 5,000 unit SQ BID [facility] Last Admin: 12/11/18 10:08 Dose: 5,000 unit Memantine (Namenda -) 10 mg PO BID [facility] Last Admin: 12/11/18 10:09 Dose: 10 mg Rosuvastatin Calcium (Crestor -) 10 mg PO HS [facility] Last Admin: 12/10/18 21:33 Dose: 10 mg Tamsulosin HCl (Flomax -) 0.4 mg PO DAILY@0830 [facility] Last Admin: 12/11/18 10:09 Dose: 0.4 mg Valsartan (Diovan -) 80 mg PO DAILY [facility] Last Admin: 12/11/18 10:09 Dose: 80 mg - Allergies Allergies: Allergies Allergy/AdvReac Type Severity Reaction Status Date / Time No Known Allergies Allergy Verified 12/10/18 11:25 - Current Living Status Usual Living Arrangement: With Spouse - Current Mental Status Evaluation Appearance: Well Groomed Attitude: Cooperative - Affect Affect: Constrictive Appropriateness: Not Appropriate - Speech/Language Expressive: Delayed - Psychomotor Activity Psychomotor Activity: Slowed - Thought Process Thought Process: Circumstantial - Thought Content Hallucinations: Absent Delusions: Absent - Self Perception Self Perception: Depersonalization - Cognition Attention: Diminished Memory, Immediate Recall: Impaired Memory, Short Term: 0/3 Memory, Remote with Promptin/3 - Concentration Serial Sevens Intact: No Simple Calculations Intact: No - Abstraction Proverb Interpretation: [place] Judgement: Moderately Impaired - Insight Insight: Impaired - Impulse Control Impulse Control: Minimally Impaired - Suicidal Ideation Suicidal Ideation: No - Homicidal Ideation Homicidal Ideation: No Assessment/Plan 1) increase Zyprexa 5mg po hs.
[2018-12-11 21:19] LABS: URINE APPEARANCE CLEAR; URINE BILIRUBIN NEGATIVE (NEGATIVE); URINE COLOR YELLOW; URINE GLUCOSE (UA) NEGATIVE (NEGATIVE); URINE KETONE NEGATIVE (NEGATIVE); URINE LEUK ESTERASE NEGATIVE (NEGATIVE); URINE NITRITE NEGATIVE (NEGATIVE); URINE PROTEIN NEGATIVE (NEGATIVE); URINE UROBILINOGEN 0.2 mg/dL (0.2-1.0)
[2018-12-11] MEDS ORDERED: OLANZapine 2.5 MG TABLET PO SCH (22:00)
[2018-12-11] MEDS: DONEPEZIL HCL 5 MG TABLET (FP) PO SCH (22:19)
[2018-12-11] MEDS: OLANZapine 5 MG TABLET PO SCH (22:19)
[2018-12-11] MEDS: ROSUVASTATIN CA 10 MG TABLET (FP) PO SCH (22:19)
[2018-12-12] MEDS ORDERED: SODIUM CHLORIDE 100 ML IV STA (05:47)
[2018-12-12] MEDS: TAMSULOSIN HCL 0.4 MG CAP PO SCH (08:16)
[2018-12-12] MEDS: HEPARIN NA (PORCINE) 5,000 UNITS/ML 1ML VIAL SQ SCH ×2 (09:11→22:23)
[2018-12-12] MEDS: MEMANTINE HCL 10 MG TABLET (FP) PO SCH ×2 (09:11→22:23)
[2018-12-12] MEDS: VALSARTAN 80 MG TABLET (UD) PO SCH ×2 (09:21→11:46)
[2018-12-12] MEDS: amLODIPine BESYLATE 10 MG TABLET (FP) PO SCH ×2 (09:21→11:46)
[2018-12-12] MEDS: CARVEDILOL 12.5 MG TABLET (FP) PO SCH (09:21)
--- NOTE | 2018-12-12 11:54 | PN ---
Progress Note, Physician Chief Complaint: 1:1 HAS BEEN STOPPED AWAKE MORE ALERT TODAY LOW BP YESTERDAY NOTED - Current Medication List Current Medications: Active Medications Amlodipine Besylate (Norvasc -) 10 mg PO DAILY [facility] Last Admin: 12/12/18 11:46 Dose: 10 mg Carvedilol (Coreg -) 12.5 mg PO BID [facility] Last Admin: 12/12/18 09:21 Dose: Not Given Donepezil HCl (Aricept -) 5 mg PO [facility] Last Admin: 12/11/18 22:19 Dose: 5 mg Haloperidol (Haldol Injection (Fast Acting) -) 5 mg IM Q6H PRN PRN Reason: ANXIETY Heparin Sodium (Porcine) (Heparin -) 5,000 unit SQ BID [facility] Last Admin: 12/12/18 09:11 Dose: 5,000 unit Memantine (Namenda -) 10 mg PO BID [facility] Last Admin: 12/12/18 09:11 Dose: 10 mg Olanzapine (Zyprexa -) 5 mg PO [facility] Last Admin: 12/11/18 22:19 Dose: 5 mg Rosuvastatin Calcium (Crestor -) 10 mg PO [facility] Last Admin: 12/11/18 22:19 Dose: 10 mg Tamsulosin HCl (Flomax -) 0.4 mg PO DAILY@0830 [facility] Last Admin: 12/12/18 08:16 Dose: 0.4 mg Valsartan (Diovan -) 80 mg PO DAILY [facility] Last Admin: 12/12/18 11:46 Dose: 80 mg - Objective Vital Signs: Vital Signs Temperature 98.3 F 12/12/18 08:59 Pulse Rate 59 L 12/12/18 11:44 Respiratory Rate 20 12/12/18 11:44 Blood Pressure 158/79 12/12/18 11:44 O2 Sat by Pulse Oximetry (%) 98 12/11/18 21:00 Constitutional: Yes: No Distress Eyes: Yes: WNL HENT: Yes: WNL Neck: Yes: WNL Cardiovascular: Yes: Regular Rate and Rhythm Respiratory: Yes: WNL Gastrointestinal: Yes: WNL, Soft Genitourinary: Yes: Incontinence Musculoskeletal: Yes: Muscle Weakness Edema: No Integumentary: Yes: WNL Wound/Incision: Yes: Clean/Dry Neurological: Yes: Confusion ...Motor Strength: LLE Psychiatric: Yes: Other Labs: CBC, BMP 12/11/18 07:00 12/11/18 07:00 Problem List - Problems (1) Advanced dementia Code(s): F03.90 - UNSPECIFIED DEMENTIA WITHOUT BEHAVIORAL DISTURBANCE (2) HLD (hyperlipidemia) Code(s): E78.5 - HYPERLIPIDEMIA, UNSPECIFIED (3) Hypertension Code(s): I10 - ESSENTIAL (PRIMARY) HYPERTENSION Qualifiers: Hypertension type: unspecified Qualified Code(s): I10 - Essential (primary ) hypertension Assessment/Plan DECREASE COREG FROM 12.5MG TO 6.5MG BID HOLD SBP <110MMHG OR HR <60/MIN DC PLANNING SNF TOMORROW
[2018-12-12] MEDS: CARVEDILOL 6.25 MG TABLET (FP) PO SCH ×2 (15:01→22:22)
[2018-12-12] MEDS: ROSUVASTATIN CA 10 MG TABLET (FP) PO SCH (22:22)
[2018-12-12] MEDS: OLANZapine 5 MG TABLET PO SCH (22:22)
[2018-12-12] MEDS: DONEPEZIL HCL 5 MG TABLET (FP) PO SCH (22:23)
[2018-12-13] MEDS: VALSARTAN 80 MG TABLET (UD) PO SCH (09:58)
[2018-12-13] MEDS: CARVEDILOL 6.25 MG TABLET (FP) PO SCH (09:58)
[2018-12-13] MEDS: amLODIPine BESYLATE 10 MG TABLET (FP) PO SCH (09:58)
[2018-12-13] MEDS: MEMANTINE HCL 10 MG TABLET (FP) PO SCH (09:59)
[2018-12-13] MEDS: HEPARIN NA (PORCINE) 5,000 UNITS/ML 1ML VIAL SQ SCH (10:00)
[2018-12-13] MEDS: TAMSULOSIN HCL 0.4 MG CAP PO SCH (10:00)
--- NOTE | 2018-12-13 10:23 | EKG ---
Test Reason : Blood Pressure : / mmHG Vent. Rate : 067 BPM Atrial Rate : 067 BPM P-R Int : 188 ms QRS Dur : 080 ms QT Int : 404 ms P-R-T Axes : 024 -22 051 degrees QTc Int : 426 ms NORMAL SINUS RHYTHM MINIMAL VOLTAGE CRITERIA FOR LVH, MAY BE NORMAL VARIANT BORDERLINE ECG WHEN COMPARED WITH ECG OF 10-DEC-2018 11:33, SC INTERVAL HAS DECREASED Confirmed by BARAK PINEDO, HALEY ([id number]) on 12/13/2018 10:22:59 AM Referred By: Confirmed By:HALEY CANCINO MD
--- NOTE | 2018-12-13 11:20 | EKG ---
Test Reason : Blood Pressure : / mmHG Vent. Rate : 064 BPM Atrial Rate : 064 BPM P-R Int : 222 ms QRS Dur : 088 ms QT Int : 398 ms P-R-T Axes : 034 -14 063 degrees QTc Int : 410 ms SINUS RHYTHM WITH 1ST DEGREE A-V BLOCK MINIMAL VOLTAGE CRITERIA FOR LVH, MAY BE NORMAL VARIANT PROBABLE EARLY REPOLARIZATION CHANGES BORDERLINE ECG WHEN COMPARED WITH ECG OF 17-SEP-2018 13:51, ST VARIATIONS Confirmed by HALEY CANCINO MD ([id number]) on 12/13/2018 11:20:20 AM Referred By: Confirmed By:HALEY CANCINO MD
--- NOTE | 2018-12-13 11:59 | DS ---
Physical Examination Vital Signs: Vital Signs Temperature 98.1 F 12/13/18 06:00 Pulse Rate 64 12/13/18 06:00 Respiratory Rate 18 12/13/18 06:00 Blood Pressure 142/89 12/13/18 06:00 O2 Sat by Pulse Oximetry (%) 97 12/12/18 10:30 Constitutional: Yes: Calm Cardiovascular: Yes: Regular Rate and Rhythm, S1, S2 Respiratory: Yes: CTA Bilaterally Gastrointestinal: Yes: Normal Bowel Sounds, Soft Edema: No Neurological: Yes: Alert Labs: CBC, BMP 12/11/18 07:00 12/11/18 07:00 Discharge Summary Reason For Visit: ADVANCED DEMETIA HYPERTENSION Current Active Problems Advanced dementia (Acute) HLD (hyperlipidemia) (Acute) Hypertension (Acute) Other Procedures: ct head negative Hospital Course: 83 yr old male htn and dementia non complaint with medication lives alone with aide sent in for elevated BP systolic BP in 200's and wandering out of house the aides who take care of him at home quit ,daughter cannot take care of him wants placement macedonian speaking only seen by psych to increase zyprexa dose placement pending seen by cardiology BP meds adjsuted coreg dose decrased HLD on statin Condition: Guarded - Instructions Disposition: LONG-TERM FACILITY - Home Medications Comprehensive Discharge Medication List: Ambulatory Orders Amlodipine Bes/Olmesartan Med [Carson 10-40 mg Tablet] 1 each PO DAILY 09/17/18 Amlodipine Besylate [Norvasc -] 10 mg PO DAILY 09/17/18 Aspirin 81 mg PO DAILY 09/17/18 Carvedilol [Coreg -] 12.5 mg PO BID 09/17/18 Donepezil HCl [Aricept] 5 mg PO DAILY 09/17/18 Hydrochlorothiazide [Hctz -] 25 mg PO DAILY 09/17/18 Memantine HCl [Namenda Xr] 14 mg PO DAILY 09/17/18 Olmesartan Medoxomil [Benicar (Nf)] 40 mg PO DAILY 09/17/18 Olmesartan/Amlodipin/Hcthiazid [Tribenzor 40-10-25 mg Tablet] 1 each PO DAILY Rosuvastatin Calcium [Crestor] 10 mg PO DAILY 09/17/18 Spironolactone [Aldactone] 25 mg PO DAILY 09/17/18 Tamsulosin HCl [Flomax] 0.4 mg PO HS 09/17/18
[2018-12-13 15:23] VITALS: BP 144/62; PULSE 62; TEMP 97.3
== END 2018-12-13 19:01 | DRG 884 ==
LOC: JER 10:59 → JERBED 13:46 → J5S 17:20
PROVIDERS: ADMIT Student in an Organized Health Care Education/Training Program; ATTEND Student in an Organized Health Care Education/Training Program
DX: F03.91 Unspecified dementia, unspecified severity, with behavioral disturbance (principal); K57.90 Diverticulosis of intestine, part unspecified, without perforation or abscess without bleeding; I10 Essential (primary) hypertension; E78.00 Pure hypercholesterolemia, unspecified; Z91.14 Patient's other noncompliance with medication regimen; Z85.46 Personal history of malignant neoplasm of prostate
CPT/HCPCS: 36415; 70450-TC; 71045-TC-FY; 80053; 80061; 81003; 82550; 82553; 82607; 83721; 83735; 84100; 84443; 84484; 85025; 85027; 86593; 93005; 93010; 97116-GP; 97161-GP; 99283-25; J1644

== ENCOUNTER 2018-12-24 20:12 | Inpatient (IN) | payer OTHER ==
--- NOTE | 2018-12-24 21:06 | PDOC ---
History of Present Illness - General Chief Complaint: Altered Mental Status Stated Complaint: ANXIETY Time Seen by Provider: 12/24/18 21:06 - History of Present Illness Initial Comments: 83 year old male with HTN and dementia who presents to the ED for poor behavior at home. He has history of dementia and was recently admitted to [facility] from a short term rehab facility. He was doing well at [facility] but the daughter took him out earlier today because she felt that the care he was receiving poor and the NH was dirty. After she took him home, he was very agitated until she gave him his medications. The daughter realizes that she made a rushed decision by taking him out of the OR and is OK with him going back there. Patient is demented and provides no history of his own. 12/24/18 21:13 Past History - Past Medical History Allergies/Adverse Reactions: Allergies Allergy/AdvReac Type Severity Reaction Status Date / Time No Known Allergies Allergy Verified 12/24/18 20:36 Home Medications: Ambulatory Orders Amlodipine Besylate [Norvasc -] 10 mg PO DAILY 09/17/18 Aspirin 81 mg PO DAILY 09/17/18 Rosuvastatin Calcium [Crestor] 10 mg PO DAILY 09/17/18 Tamsulosin HCl [Flomax] 0.4 mg PO HS 09/17/18 Carvedilol [Coreg -] 6.25 mg PO BID #30 tablet MDD 2 12/13/18 Donepezil HCl [Aricept -] 5 mg PO HS tablet 12/13/18 Memantine HCl [Namenda -] 10 mg PO BID tablet 12/13/18 Olanzapine [Zyprexa -] 5 mg PO HS tablet 12/13/18 Anemia: No Asthma: No Cancer: Yes (PROSTATE CA) Cardiac Disorders: No CVA: No COPD: No CHF: No Dementia: No Diabetes: No GI Disorders: Yes (DIVERTICULOSIS) Disorders: Yes (H/O PROSTATE CA WITH SEED IMPLANT) HTN: Yes Hypercholesterolemia: Yes Liver Disease: No Seizures: No Thyroid Disease: No - Surgical History Abdominal Surgery: No Appendectomy: No Cardiac Surgery: No Cholecystectomy: No Lung Surgery: No Neurologic Surgery: No Orthopedic Surgery: No - Immunization History Immunization Up to Date: Yes - Suicide/Smoking/Psychosocial Hx Smoking Status: No Smoking History: Never smoked Have you smoked in the past 12 months: No Number of Cigarettes Smoked Daily: 0 Information on smoking cessation initiated: No Hx Alcohol Use: No Drug/Substance Use Hx: No Substance Use Type: None Hx Substance Use Treatment: No Review of Systems - Review of Systems Able to Perform ROS?: No (No, demented) *Physical Exam - Vital Signs Last Vital Signs Temp Pulse Resp BP Pulse Ox 98.9 F 61 18 122/62 100 12/24/18 20:34 12/24/18 20:34 12/24/18 20:34 12/24/18 20:34 12/24/18 20:34 - Physical Exam General Appearance: Yes: Nourished, Appropriately Dressed. No: Apparent Distress HEENT: positive: EOMI, KELSI, Normal ENT Inspection, Normal Voice Neck: positive: Trachea midline, Normal Thyroid, Supple. negative: Tender, Rigid Respiratory/Chest: positive: Lungs Clear, Normal Breath Sounds. negative: Chest Tender, Respiratory Distress, Accessory Muscle Use Cardiovascular: positive: Regular Rhythm, Regular Rate Gastrointestinal/Abdominal: positive: Normal Bowel Sounds, Flat, Soft. negative : Tender Lymphatic: negative: Adenopathy, Tenderness Musculoskeletal: positive: Normal Inspection. negative: Decreased Range of Motion Extremity: positive: Normal Capillary Refill, Normal Inspection, Normal Range of Motion. negative: Tender Integumentary: positive: Normal Color, Dry, Warm Neurologic: positive: Alert, Normal Mood/Affect, Normal Response, Motor Strength 5/5. negative: Fully Oriented ED Treatment Course - LABORATORY CBC & Chemistry Diagram: 12/24/18 23:15 12/24/18 23:15 Medical Decision Making - Medical Decision Making 83 year old severely demented patient presenting agitated from his home. Unfortunately, it seems that patient is not well controlled on his home medications as his daughter states that he was very agitated while at home,. In our ED he is non compliant with much of the physical exam and even more simple directions. We were able to eventually redirect and complete our exam after repeated attempts with aid of staff and family. Labs and imaging WNL. We suspect that he needs to been optimized on his medications for his dementia. Patient admitted for acute behavior change to [facility]. 12/25/18 05:28 *DC/Admit/Observation/Transfer Diagnosis at time of Disposition: Behavioral change Dementia Qualifiers: Dementia type: unspecified type Dementia behavioral disturbance: with behavioral disturbance Qualified Code(s): F03.91 - Unspecified dementia with behavioral disturbance - Discharge Dispostion Condition at time of disposition: Stable Decision to Admit order: Yes - Referrals - Patient Instructions - Post Discharge Activity
--- NOTE | 2018-12-24 21:28 | PDOC ---
Attending Attestation - Resident Resident Name: Prosper Dowell - ED Attending Attestation I have performed the following: I have examined & evaluated the patient, The case was reviewed & discussed with the resident, I agree w/resident's findings & plan - Medical Decision Making 12/24/18 21:35 I called PMHarrison Rubalcava to let him know that pt will likely be admitted to hospitalist for social admission. <Yareli Lr - Last Filed: 12/24/18 21:35> - HPI HPI: 12/24/18 22:17 The patient is a 83 year old male, with a significant PMH of HTN, Anema, severe Dementia, Prostate CA, Lumbago, Thrombocytopenia, CAD and PAD who presents to the emergency department with altered mental status at home. As per daughter, the patient was admitted to [facility] from a mental rehab facility, however, she [facility] because he wasnt being attended to, crying and the place was dirty. As per daughter the patient was getting aggressive at home promoting his arrival to the ED. The patient is now at his normal baseline. The patient is a poor historian due to his dementia. Allergies: NKDA Past surgical history: None reported Social history: No reported PCP: luis antonio Hayward - Physicial Exam PE: 12/24/18 22:17 GENERAL: (+) demented. Awake, and fully oriented, in no acute distress HEAD: No signs of trauma EYES: PERRLA, EOMI, sclera anicteric, conjunctiva clear ENT: Auricles normal inspection, hearing grossly normal, nares patent, oropharynx clear without exudates. Moist mucosa NECK: Normal ROM, supple, no lymphadenopathy, JVD, or masses LUNGS: Breath sounds equal, clear to auscultation bilaterally. No wheezes, and no crackles HEART: Regular rate and rhythm, normal S1 and S2, no murmurs, rubs or gallops ABDOMEN: Soft, nontender, normoactive bowel sounds. No guarding, no rebound. No masses EXTREMITIES: Normal range of motion, no edema. No clubbing or cyanosis. No cords, erythema, or tenderness NEUROLOGICAL: Cranial nerves II through XII grossly intact. Normal speech, normal gait SKIN: Warm, Dry, normal turgor, no rashes or lesions noted. <Corraj,Xhesika - Last Filed: 12/24/18 22:18> Attestations - Attestations 12/24/18 22:18 Documentation prepared by Rivera Hess, acting as medical sonographer for Yareli Lr MD <Rivera Hess - Last Filed: 12/24/18 22:18>
[2018-12-24] MEDS ORDERED: HALOPERIDOL LACTATE 5 MG/ML IM ONE (21:57)
[2018-12-24 23:29] LABS: HEMATOCRIT 35.5 % (35.4-49); HEMOGLOBIN 11.7 GM/dL (11.7-16.9); MCHC 33.1 g/dl (32.0-35.9); MEAN CELL VOLUME 87.8 fl (80-96); MEAN PLT VOLUME 9.3 fl (7.5-11.1); PLATELET COUNT 155 K/MM3 (134-434); RBC 4.04 M/mm3 (4.00-5.60); RDW 13.3 % (11.9-15.9); WHITE BLOOD COUNT 8.9 K/mm3 (4.0-10.0)
[2018-12-24 23:58] LABS: ALBUMIN 3.5 g/dl (3.4-5.0); ALK PHOS 73 U/L (45-117); ANION GAP 5 MMOL/L (8-16); BILIRUBIN,TOTAL 0.2 mg/dL (0.2-1); BLOOD UREA NITROGEN 28 mg/dL (7-18); CALCIUM 9.1 mg/dL (8.5-10.1); CHLORIDE 104 mmol/L (98-107); CO2 28 mmol/L (21-32); CREATININE 1.1 mg/dL (0.55-1.3); GLUCOSE,RANDOM 127 mg/dL (74-106); POTASSIUM 4.3 mmol/L (3.5-5.1); SGOT/AST 39 U/L (15-37); SGPT/ALT 24 U/L (13-61); SODIUM 137 mmol/L (136-145); TOT PROT 7.4 g/dl (6.4-8.2)
--- NOTE | 2018-12-25 01:36 | HP ---
Admitting History and Physical - Primary Care Physician PCP: Kiya Pendleton - Admission Chief Complaint: AMS, Increased Agitation History of Present Illness: This is a 83 y/o man with a PMHx of Dementia. HTN, HLD. Recent admission for Hypertensive Urgency and Advanced Dementia 12/10-12/13/18. Who presents to the ED with his daughter who reports patient has been increasingly agitated and crying since bringing him home from a SNF. Patient's daughter thought she could care for her father at home, but realized she cannot due to his advancing disease process. Patient has Dementia and speaks Yakut, he is unable to provide HPI. 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 Cardiovascular: Yes: HTN, Hyperlipdemia Renal/: Yes: Cancer (Prostate cancer- radiation seed placement) - Past Surgical History Past Surgical History: Yes: Hernia Repair - Advance Directives Advance Directives: Yes: DNR (DNI only) - Smoking History Smoking history: Never smoked Have you smoked in the past 12 months: No Aproximately how many cigarettes per day: 0 - Alcohol/Substance Use Hx Alcohol Use: No History of Substance Use: reports: None - Social History Usual Living Arrangement: Yes: Alone History of Recent Travel: No Home Medications - Allergies Allergies/Adverse Reactions: Allergies Allergy/AdvReac Type Severity Reaction Status Date / Time No Known Allergies Allergy Verified 12/24/18 20:36 - Home Medications Home Medications: Ambulatory Orders Amlodipine Besylate [Norvasc -] 10 mg PO DAILY 09/17/18 Aspirin 81 mg PO DAILY 09/17/18 Rosuvastatin Calcium [Crestor] 10 mg PO DAILY 09/17/18 Tamsulosin HCl [Flomax] 0.4 mg PO HS 09/17/18 Carvedilol [Coreg -] 6.25 mg PO BID #30 tablet MDD 2 12/13/18 Donepezil HCl [Aricept -] 5 mg PO HS tablet 12/13/18 Memantine HCl [Namenda -] 10 mg PO BID tablet 12/13/18 Olanzapine [Zyprexa -] 5 mg PO HS tablet 12/13/18 Family Disease History - Family Disease History Family History: Unable to Obtain Review of Systems Unable to obtain ROS, reason: Dementia Physical Examination Vital Signs: Vital Signs Temperature 98.9 F 12/24/18 20:34 Pulse Rate 61 12/24/18 20:34 Respiratory Rate 18 12/24/18 20:34 Blood Pressure 122/62 12/24/18 20:34 O2 Sat by Pulse Oximetry (%) 100 12/24/18 23:26 Constitutional: Yes: Well Nourished, No Distress, Calm Eyes: Yes: WNL, Conjunctiva Clear, EOM Intact, PERRL HENT: Yes: WNL, Atraumatic, Normocephalic Neck: Yes: WNL, Supple, Trachea Midline Cardiovascular: Yes: WNL, Regular Rate and Rhythm, S1, S2 Respiratory: Yes: WNL, Regular, CTA Bilaterally Gastrointestinal: Yes: Normal Bowel Sounds, Soft, Distention Renal/: Yes: Incontinence Breast(s): Yes: WNL Musculoskeletal: Yes: WNL Extremities: Yes: WNL Edema: No Peripheral Pulses WNL: Yes Neurological: Yes: Alert, Cran Nerves II-XII Intact ...Motor Strength: WNL Psychiatric: Yes: Alert Labs: CBC, BMP 12/24/18 23:15 12/24/18 23:15 Laboratory Results - last 24 hr 12/24/18 12/24/18 12/25/18 23:15 23:15 02:03 WBC 8.9 RBC 4.04 Hgb 11.7 Hct 35.5 MCV 87.8 MCH 29.0 MCHC 33.1 RDW 13.3 Plt Count 155 MPV 9.3 Sodium 137 Potassium 4.3 Chloride 104 Carbon Dioxide 28 Anion Gap 5 L BUN 28 H Creatinine 1.1 Creat Clearance w eGFR 63.77 Random Glucose 127 H Calcium 9.1 Total Bilirubin 0.2 AST 39 H ALT 24 Alkaline Phosphatase 73 Troponin I < 0.02 Total Protein 7.4 Albumin 3.5 Urine Color Yellow Urine Appearance Clear Urine pH 6.5 Ur Specific [place] 1.013 Urine Protein Negative Urine Glucose (UA) Negative Urine Ketones Negative Urine Blood Negative Urine Nitrite Negative Urine Bilirubin Negative Urine Urobilinogen 0.2 Ur Leukocyte Esterase Negative Intake & Output 12/22/18 12/23/18 12/24/18 12/25/18 23:59 23:59 23:59 23:59 Weight 81.647 kg Current Medications Generic Name Dose Route Start Last Admin Trade Name Freq PRN Reason Stop Dose Admin Amlodipine Besylate 10 mg 12/25/18 10:00 Norvasc - PO DAILY MACIEL Aspirin 81 mg 12/25/18 10:00 Asa - PO DAILY MACIEL Carvedilol 6.25 mg 12/25/18 10:00 Coreg - PO BID MACIEL Donepezil HCl 5 mg 12/25/18 22:00 Aricept - PO HS MACIEL Memantine 10 mg 12/25/18 10:00 Namenda - PO BID MACIEL Olanzapine 5 mg 12/25/18 22:00 Zyprexa - PO HS MACIEL Rosuvastatin Calcium 10 mg 12/25/18 10:00 Crestor - PO DAILY MACIEL Tamsulosin HCl 0.4 mg 12/25/18 22:00 Flomax - PO HS MACIEL Imaging - Results Chest X-ray: Pending EKG: Image Reviewed Problem List - Problems (1) Agitation Assessment/Plan: Likely secondary to Advanced Dementia Continue Zyprexa Code(s): R45.1 - RESTLESSNESS AND AGITATION (2) Advanced dementia Assessment/Plan: not well controlled Continue Namenda, Aricept 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 Placed in Observation for Acute Agitation, Advanced Dementia for further evaluation of their emergent condition. Plan: See Problem List FEN PO fluids as tolerated Replete lytes prn Low Na Diet DVT ppx OOB SCDs Consider AC if LOS > 48 hrs Code Status: DNI only Dispo: Observation Visit type - Emergency Visit Emergency Visit: Yes ED Registration Date: 12/24/18 Care time: The patient presented to the Emergency Department on the above date and was hospitalized for further evaluation of their emergent condition. - New Patient This patient is new to me today: Yes Date on this admission: 12/25/18 - Critical Care Critical Care patient: No
[2018-12-25 02:11] LABS: PH,URINE 6.5 (5.0-8.0); URINE APPEARANCE CLEAR; URINE BILIRUBIN NEGATIVE (NEGATIVE); URINE COLOR YELLOW; URINE GLUCOSE (UA) NEGATIVE (NEGATIVE); URINE KETONE NEGATIVE (NEGATIVE); URINE LEUK ESTERASE NEGATIVE (NEGATIVE); URINE NITRITE NEGATIVE (NEGATIVE); URINE PROTEIN NEGATIVE (NEGATIVE); URINE UROBILINOGEN 0.2 mg/dL (0.2-1.0)
[2018-12-25 04:23] VITALS: BMI 26.6
[2018-12-25 08:05] LABS: BASO % 0.8 % (0-2.0); EOS % 1.6 % (0-4.5); HEMATOCRIT 32.8 % (35.4-49); HEMOGLOBIN 10.9 GM/dL (11.7-16.9); LYMPH % 34.8 % (8-40); MCH 29.1 pg (25.7-33.7); MCHC 33.3 g/dl (32.0-35.9); MEAN CELL VOLUME 87.5 fl (80-96); MEAN PLT VOLUME 9.1 fl (7.5-11.1); MONO % 9.3 % (3.8-10.2); NEUT % 53.5 % (42.8-82.8); PLATELET COUNT 143 K/MM3 (134-434); RBC 3.75 M/mm3 (4.00-5.60); RDW 13.2 % (11.9-15.9); WHITE BLOOD COUNT 7.4 K/mm3 (4.0-10.0)
[2018-12-25 08:33] LABS: ANION GAP 6 MMOL/L (8-16); BLOOD UREA NITROGEN 24 mg/dL (7-18); CALCIUM 8.3 mg/dL (8.5-10.1); CHLORIDE 108 mmol/L (98-107); CO2 28 mmol/L (21-32); CREATININE 1.1 mg/dL (0.55-1.3); GLUCOSE,RANDOM 86 mg/dL (74-106); MAGNESIUM 2.1 mg/dL (1.8-2.4); POTASSIUM 3.9 mmol/L (3.5-5.1); SODIUM 142 mmol/L (136-145)
[2018-12-25] MEDS ORDERED: PT OWN MED DRAWER 7, Y5N ONE (10:01)
[2018-12-25] MEDS: CARVEDILOL 6.25 MG TABLET (FP) PO SCH ×2 (10:03→21:03)
[2018-12-25] MEDS: ASPIRIN 81 MG CHEWABLE TABLETS PO SCH (10:03)
[2018-12-25] MEDS: amLODIPine BESYLATE 10 MG TABLET (FP) PO SCH (10:04)
[2018-12-25] MEDS: MEMANTINE HCL 10 MG TABLET (FP) PO SCH ×2 (10:04→21:04)
[2018-12-25] MEDS: ROSUVASTATIN CA 10 MG TABLET (FP) PO SCH (10:04)
--- NOTE | 2018-12-25 11:59 | PN ---
Progress Note, Physician Chief Complaint: AMS, Increased Agitation History of Present Illness: NAD confused daughter unable to take care of him needs LTP - Current Medication List Current Medications: Active Medications Amlodipine Besylate (Norvasc -) 10 mg PO DAILY COUNT INCLUDES [facility] Last Admin: 12/25/18 10:04 Dose: 10 mg Aspirin (Asa -) 81 mg PO DAILY COUNT INCLUDES [facility] Last Admin: 12/25/18 10:03 Dose: 81 mg Carvedilol (Coreg -) 6.25 mg PO BID COUNT INCLUDES [facility] Last Admin: 12/25/18 10:03 Dose: 6.25 mg Donepezil HCl (Aricept -) 5 mg PO HS COUNT INCLUDES THE [facility] Memantine (Namenda -) 10 mg PO BID COUNT INCLUDES [facility] Last Admin: 12/25/18 10:04 Dose: 10 mg Olanzapine (Zyprexa -) 5 mg PO [facility] Rosuvastatin Calcium (Crestor -) 10 mg PO DAILY COUNT INCLUDES THE [facility] Last Admin: 12/25/18 10:04 Dose: 10 mg Tamsulosin HCl (Flomax -) 0.4 mg PO [facility] - Objective Vital Signs: Vital Signs Temperature 97.8 F 12/25/18 08:20 Pulse Rate 51 L 12/25/18 08:20 Respiratory Rate 20 12/25/18 08:20 Blood Pressure 162/70 12/25/18 08:20 O2 Sat by Pulse Oximetry (%) 98 12/25/18 02:40 Constitutional: Yes: Well Nourished, No Distress, Calm Cardiovascular: Yes: Regular Rate and Rhythm Respiratory: Yes: Regular Musculoskeletal: Yes: Muscle Weakness Extremities: Yes: WNL Neurological: Yes: Alert, Pre-Existing Deficit Psychiatric: Yes: Alert Labs: CBC, BMP 12/25/18 06:30 12/25/18 06:30 Problem List - Problems (1) Agitation Assessment/Plan: -previously seen by Neurology and psychiatry -continue Zyprexa, donepazil and namenda Code(s): R45.1 - RESTLESSNESS AND AGITATION (2) Behavioral change Code(s): R46.89 - OTHER SYMPTOMS AND SIGNS INVOLVING APPEARANCE AND BEHAVIOR (3) Advanced dementia Code(s): F03.90 - UNSPECIFIED DEMENTIA WITHOUT BEHAVIORAL DISTURBANCE Assessment/Plan see problem list
[2018-12-25] MEDS ORDERED: HALOPERIDOL LACTATE 5 MG/ML IM ONE (19:30)
[2018-12-25] MEDS: TAMSULOSIN HCL 0.4 MG CAP PO SCH (21:03)
[2018-12-25] MEDS: OLANZapine 5 MG TABLET PO SCH (21:03)
[2018-12-25] MEDS: DONEPEZIL HCL 5 MG TABLET (FP) PO SCH (21:04)
[2018-12-26] MEDS ORDERED: HALOPERIDOL LACTATE 5 MG/ML IM ONE (01:15)
[2018-12-26] MEDS ORDERED: diphenhydrAMINE HCL 25 MG CAPSULE (FP) PO ONE (01:15)
[2018-12-26] MEDS ORDERED: PT OWN MED DRAWER 7, Y5N ONE (08:58)
[2018-12-26] MEDS: ASPIRIN 81 MG CHEWABLE TABLETS PO SCH (09:01)
[2018-12-26] MEDS: CARVEDILOL 6.25 MG TABLET (FP) PO SCH ×2 (09:01→21:32)
[2018-12-26] MEDS: ROSUVASTATIN CA 10 MG TABLET (FP) PO SCH (09:01)
[2018-12-26] MEDS: amLODIPine BESYLATE 10 MG TABLET (FP) PO SCH (09:02)
[2018-12-26] MEDS: MEMANTINE HCL 10 MG TABLET (FP) PO SCH ×2 (09:02→21:32)
--- NOTE | 2018-12-26 10:40 | PN ---
Progress Note, Physician Chief Complaint: AMS, Increased Agitation History of Present Illness: NAD pleasently confused walking in the hallway wants to leave daughter unable to take care of him needs LTP - Current Medication List Current Medications: Active Medications Amlodipine Besylate (Norvasc -) 10 mg PO DAILY [facility] Last Admin: 12/26/18 09:02 Dose: 10 mg Aspirin (Asa -) 81 mg PO DAILY [facility] Last Admin: 12/26/18 09:01 Dose: 81 mg Carvedilol (Coreg -) 6.25 mg PO BID [facility] Last Admin: 12/26/18 09:01 Dose: 6.25 mg Donepezil HCl (Aricept -) 5 mg PO [facility] Last Admin: 12/25/18 21:04 Dose: 5 mg Memantine (Namenda -) 10 mg PO BID [facility] Last Admin: 12/26/18 09:02 Dose: 10 mg Olanzapine (Zyprexa -) 5 mg PO [facility] Last Admin: 12/25/18 21:03 Dose: 5 mg Rosuvastatin Calcium (Crestor -) 10 mg PO DAILY [facility] Last Admin: 12/26/18 09:01 Dose: 10 mg Tamsulosin HCl (Flomax -) 0.4 mg PO [facility] Last Admin: 12/25/18 21:03 Dose: 0.4 mg - Objective Vital Signs: Vital Signs Temperature 98 F 12/26/18 08:20 Pulse Rate 78 12/26/18 08:20 Respiratory Rate 20 12/26/18 08:20 Blood Pressure 186/83 H 12/26/18 08:20 O2 Sat by Pulse Oximetry (%) 98 12/25/18 02:40 Constitutional: Yes: Well Nourished, No Distress, Calm Cardiovascular: Yes: Regular Rate and Rhythm Respiratory: Yes: Regular Gastrointestinal: Yes: Normal Bowel Sounds, Soft Musculoskeletal: Yes: Muscle Weakness Extremities: Yes: WNL Edema: No Peripheral Pulses WNL: Yes Neurological: Yes: Pre-Existing Deficit Labs: CBC, BMP 12/25/18 06:30 12/25/18 06:30 Problem List - Problems (1) Agitation Assessment/Plan: -previously seen by Neurology and psychiatry -continue Zyprexa, donepazil and namenda -Awaiting LTP -1:1 obs Code(s): R45.1 - RESTLESSNESS AND AGITATION (2) Behavioral change Code(s): R46.89 - OTHER SYMPTOMS AND SIGNS INVOLVING APPEARANCE AND BEHAVIOR (3) Advanced dementia Code(s): F03.90 - UNSPECIFIED DEMENTIA WITHOUT BEHAVIORAL DISTURBANCE Assessment/Plan see problem list physical therapy
[2018-12-26] MEDS: OLANZapine 5 MG TABLET PO SCH (21:32)
[2018-12-26] MEDS: DONEPEZIL HCL 5 MG TABLET (FP) PO SCH (21:32)
[2018-12-26] MEDS: TAMSULOSIN HCL 0.4 MG CAP PO SCH (21:32)
[2018-12-27] MEDS ORDERED: PT OWN MED DRAWER 7, Y5N ONE ×2 (10:18→21:25)
[2018-12-27] MEDS: CARVEDILOL 6.25 MG TABLET (FP) PO SCH ×2 (10:33→21:27)
[2018-12-27] MEDS: ROSUVASTATIN CA 10 MG TABLET (FP) PO SCH (10:33)
[2018-12-27] MEDS: ASPIRIN 81 MG CHEWABLE TABLETS PO SCH (10:33)
[2018-12-27] MEDS: amLODIPine BESYLATE 10 MG TABLET (FP) PO SCH (10:34)
[2018-12-27] MEDS: MEMANTINE HCL 10 MG TABLET (FP) PO SCH ×2 (10:34→21:27)
--- NOTE | 2018-12-27 10:38 | EKG ---
Test Reason : Blood Pressure : / mmHG Vent. Rate : 055 BPM Atrial Rate : 055 BPM P-R Int : 222 ms QRS Dur : 090 ms QT Int : 428 ms P-R-T Axes : 029 -10 053 degrees QTc Int : 409 ms SINUS BRADYCARDIA WITH 1ST DEGREE A-V BLOCK MODERATE VOLTAGE CRITERIA FOR LVH, MAY BE NORMAL VARIANT BORDERLINE ECG WHEN COMPARED WITH ECG OF 11-DEC-2018 10:24, ME INTERVAL HAS INCREASED Confirmed by ROXANA PINEDO, HARVINDER ([id number]) on 12/27/2018 10:37:26 AM Referred By: Confirmed By:HARVINDER SCHMIDT MD
--- NOTE | 2018-12-27 10:43 | PN ---
Progress Note, Physician Chief Complaint: Increased Agitation Dementia History of Present Illness: Previous notes and events reviewed awake and alert, but confused NAD c/o L sided chest pain - Current Medication List Current Medications: Active Medications Amlodipine Besylate (Norvasc -) 10 mg PO DAILY [facility] Last Admin: 12/26/18 09:02 Dose: 10 mg Aspirin (Asa -) 81 mg PO DAILY [facility] Last Admin: 12/26/18 09:01 Dose: 81 mg Carvedilol (Coreg -) 6.25 mg PO BID [facility] Last Admin: 12/26/18 21:32 Dose: 6.25 mg Donepezil HCl (Aricept -) 5 mg PO HS [facility] Last Admin: 12/26/18 21:32 Dose: 5 mg Memantine (Namenda -) 10 mg PO BID [facility] Last Admin: 12/26/18 21:32 Dose: 10 mg Olanzapine (Zyprexa -) 5 mg PO HS [facility] Last Admin: 12/26/18 21:32 Dose: 5 mg Rosuvastatin Calcium (Crestor -) 10 mg PO DAILY [facility] Last Admin: 12/26/18 09:01 Dose: 10 mg Tamsulosin HCl (Flomax -) 0.4 mg PO HS [facility] Last Admin: 12/26/18 21:32 Dose: 0.4 mg - Objective Vital Signs: Vital Signs Temperature 97.8 F 12/27/18 06:25 Pulse Rate 61 12/27/18 06:25 Respiratory Rate 20 12/27/18 06:25 Blood Pressure 177/71 H 12/27/18 06:25 O2 Sat by Pulse Oximetry (%) 98 12/26/18 21:00 Constitutional: Yes: No Distress, Calm Eyes: Yes: Conjunctiva Clear HENT: Yes: Atraumatic Cardiovascular: Yes: Regular Rate and Rhythm Respiratory: Yes: Regular, CTA Bilaterally Gastrointestinal: Yes: Normal Bowel Sounds, Soft Genitourinary: Yes: Incontinence Musculoskeletal: Yes: Muscle Weakness Extremities: Yes: WNL Edema: No Neurological: Yes: Alert, Pre-Existing Deficit Psychiatric: Yes: Alert Labs: CBC, BMP 12/25/18 06:30 12/25/18 06:30 Problem List - Problems (1) Chest pain Assessment/Plan: -EKG and troponin ordered STAT Code(s): R07.9 - CHEST PAIN, UNSPECIFIED (2) Agitation Assessment/Plan: -continue Zyprexa -1:1 observation Code(s): R45.1 - RESTLESSNESS AND AGITATION (3) Dementia Assessment/Plan: -continue Memantine and Donepazil -pending discharge to SNF when bed available Code(s): F03.90 - UNSPECIFIED DEMENTIA WITHOUT BEHAVIORAL DISTURBANCE Qualifiers: Dementia type: unspecified type Dementia behavioral disturbance: with behavioral disturbance Qualified Code(s): F03.91 - Unspecified dementia with behavioral disturbance (4) HLD (hyperlipidemia) Assessment/Plan: -continue Rosuvastatin Code(s): E78.5 - HYPERLIPIDEMIA, UNSPECIFIED (5) Hypertension Assessment/Plan: -continue Norvasc -low Na diet Code(s): I10 - ESSENTIAL (PRIMARY) HYPERTENSION Qualifiers: Hypertension type: unspecified Qualified Code(s): I10 - Essential (primary ) hypertension Assessment/Plan see problem list dvt ppx discharge to SNF when bed available
--- NOTE | 2018-12-27 12:18 | EKG ---
Test Reason : Blood Pressure : / mmHG Vent. Rate : 070 BPM Atrial Rate : 070 BPM P-R Int : 216 ms QRS Dur : 082 ms QT Int : 392 ms P-R-T Axes : 030 -19 047 degrees QTc Int : 423 ms SINUS RHYTHM WITH 1ST DEGREE A-V BLOCK MINIMAL VOLTAGE CRITERIA FOR LVH, MAY BE NORMAL VARIANT NONSPECIFIC T WAVE ABNORMALITY ABNORMAL ECG WHEN COMPARED WITH ECG OF 24-DEC-2018 21:58, T WAVE VARIATION Confirmed by BARAK PINEDO, HALEY ([id number]) on 12/27/2018 12:18:22 PM Referred By: MARILYNN COBIAN Confirmed By:HALEY CANCINO MD
--- NOTE | 2018-12-27 14:06 | CON.CARD ---
Consult Consult Specialty:: Cardiology Reason for Consultation:: Chest pain - History of Present Illness History of Present Illness: History was obtained from the chart. PT is unable to provide a meaningful prior history due to his dementia. Admitted due to placement difficulty. Previous history of HTN and HLD. No known crdiac disease history. Complained of Chest pain earlier today. Now comfortable. No dyspnea no complaints. ECG done at the time showed NSR without ST T changes. - History Source History Provided By: Medical Record - Past Medical History [employer]: Yes: Dementia Cardio/Vascular: Yes: HTN, Hyperlipdemia Renal/: Yes: Cancer (Prostate cancer- radiation seed placement) - Past Surgical History Past Surgical History: Yes: Hernia Repair - Alcohol/Substance Use Hx Alcohol Use: No History of Substance Use: reports: None - Smoking History Smoking history: Never smoked Have you smoked in the past 12 months: No Aproximately how many cigarettes per day: 0 - Social History Usual Living Arrangement: With Spouse History of Recent Travel: No Home Medications - Allergies Allergies/Adverse Reactions: Allergies Allergy/AdvReac Type Severity Reaction Status Date / Time No Known Allergies Allergy Verified 12/24/18 20:36 - Home Medications Home Medications: Ambulatory Orders Amlodipine Besylate [Norvasc -] 10 mg PO DAILY 09/17/18 Aspirin 81 mg PO DAILY 09/17/18 Rosuvastatin Calcium [Crestor] 10 mg PO DAILY 09/17/18 Tamsulosin HCl [Flomax] 0.4 mg PO HS 09/17/18 Carvedilol [Coreg -] 6.25 mg PO BID #30 tablet MDD 2 12/13/18 Donepezil HCl [Aricept -] 5 mg PO HS tablet 12/13/18 Memantine HCl [Namenda -] 10 mg PO BID tablet 12/13/18 Olanzapine [Zyprexa -] 5 mg PO HS tablet 12/13/18 Review of Systems Unable to obtain ROS, reason: Dementia Vital Signs: Vital Signs Temperature 98.3 F 12/27/18 10:30 Pulse Rate 60 12/27/18 10:30 Respiratory Rate 18 12/27/18 10:30 Blood Pressure 150/64 12/27/18 10:30 O2 Sat by Pulse Oximetry (%) 98 12/26/18 21:00 Constitutional: Yes: Well Nourished, No Distress, Calm Eyes: Yes: Conjunctiva Clear, EOM Intact HENT: Yes: Atraumatic, Normocephalic Neck: Yes: Supple, Trachea Midline Respiratory: Yes: Regular, CTA Bilaterally Gastrointestinal: Yes: Normal Bowel Sounds, Soft Cardiovascular: Yes: Regular Rate and Rhythm JVD: No Carotid Bruit: No PMI: Non-Displaced Heart Sounds: Yes: S1, S2 Murmur: No: Systolic Murmur, Diastolic Murmur Edema: No - Other Data Labs, Other Data: CBC, BMP 12/25/18 06:30 12/25/18 06:[address] T changes Problem List - Problems (1) Agitation Code(s): R45.1 - RESTLESSNESS AND AGITATION (2) Behavioral change Code(s): R46.89 - OTHER SYMPTOMS AND SIGNS INVOLVING APPEARANCE AND BEHAVIOR (3) Chest pain Code(s): R07.9 - CHEST PAIN, UNSPECIFIED Assessment/Plan 83 M Dementia with HTN and atypical CP. No ECG changes at the time of symptoms to suggest ischemia or myocardial injury. Given significant dementia, continued conservative management and control of his HTN is appropriate. Will see as needed.
[2018-12-27] MEDS: OLANZapine 5 MG TABLET PO SCH (21:27)
[2018-12-27] MEDS: TAMSULOSIN HCL 0.4 MG CAP PO SCH (21:27)
[2018-12-27] MEDS: DONEPEZIL HCL 5 MG TABLET (FP) PO SCH (21:28)
--- NOTE | 2018-12-28 08:51 | PN ---
Progress Note, Physician - Current Medication List Current Medications: Active Medications Amlodipine Besylate (Norvasc -) 10 mg PO DAILY [facility] Last Admin: 12/27/18 10:34 Dose: 10 mg Aspirin (Asa -) 81 mg PO DAILY [facility] Last Admin: 12/27/18 10:33 Dose: 81 mg Carvedilol (Coreg -) 6.25 mg PO BID [facility] Last Admin: 12/27/18 21:27 Dose: 6.25 mg Donepezil HCl (Aricept -) 5 mg PO HS [facility] Last Admin: 12/27/18 21:28 Dose: 5 mg Memantine (Namenda -) 10 mg PO BID [facility] Last Admin: 12/27/18 21:27 Dose: 10 mg Olanzapine (Zyprexa -) 5 mg PO HS [facility] Last Admin: 12/27/18 21:27 Dose: 5 mg Rosuvastatin Calcium (Crestor -) 10 mg PO DAILY [facility] Last Admin: 12/27/18 10:33 Dose: 10 mg Tamsulosin HCl (Flomax -) 0.4 mg PO HS [facility] Last Admin: 12/27/18 21:27 Dose: 0.4 mg - Objective Vital Signs: Vital Signs Temperature 97.6 F 12/27/18 21:22 Pulse Rate 68 12/27/18 21:22 Respiratory Rate 18 12/27/18 21:22 Blood Pressure 165/69 12/27/18 21:22 O2 Sat by Pulse Oximetry (%) 98 12/26/18 21:00 Labs: CBC, BMP 12/25/18 06:30 12/25/18 06:30
[2018-12-28] MEDS: MEMANTINE HCL 10 MG TABLET (FP) PO SCH (11:03)
[2018-12-28] MEDS: ASPIRIN 81 MG CHEWABLE TABLETS PO SCH (11:03)
[2018-12-28] MEDS: amLODIPine BESYLATE 10 MG TABLET (FP) PO SCH (11:03)
[2018-12-28] MEDS: ROSUVASTATIN CA 10 MG TABLET (FP) PO SCH (11:03)
[2018-12-28] MEDS: CARVEDILOL 6.25 MG TABLET (FP) PO SCH (11:04)
[2018-12-28 15:11] VITALS: BP 167/81; PULSE 75; TEMP 98
--- NOTE | 2018-12-28 15:33 | DS ---
Physical Examination Vital Signs: Vital Signs Temperature 98.0 F 12/28/18 15:00 Pulse Rate 75 12/28/18 15:00 Respiratory Rate 20 12/28/18 15:00 Blood Pressure 167/81 12/28/18 15:00 O2 Sat by Pulse Oximetry (%) 99 12/28/18 09:00 Findings/Remarks: Patient is an 83 y/o male with past medical history of Dementia, HTN, HLD. Patient presented to ER with daughter who states he was exhibiting increased agitation crying since being discharged from SNF. Constitutional: Yes: No Distress, Calm Eyes: Yes: Conjunctiva Clear HENT: Yes: Atraumatic Musculoskeletal: Yes: WNL Extremities: Yes: WNL Neurological: Yes: Alert, Confusion Psychiatric: Yes: Alert Labs: CBC, BMP 12/25/18 06:30 12/25/18 06:30 Discharge Summary Reason For Visit: ADVANCED DEMENTIA/AGITATION/HYPERTENSION Current Active Problems Agitation (Acute) Behavioral change (Acute) Chest pain (Acute) Dementia (Acute) Hospital Course: see progress note Laboratory Tests 12/24/18 12/24/18 12/25/18 23:15 23:15 02:03 WBC 8.9 RBC 4.04 Hgb 11.7 Hct 35.5 MCV 87.8 MCH 29.0 MCHC 33.1 RDW 13.3 Plt Count 155 MPV 9.3 Absolute Neuts (auto) Neutrophils % Lymphocytes % Monocytes % Eosinophils % Basophils % Nucleated RBC % Sodium 137 Potassium 4.3 Chloride 104 Carbon Dioxide 28 Anion Gap 5 L BUN 28 H Creatinine 1.1 Creat Clearance w eGFR 63.77 Random Glucose 127 H Calcium 9.1 Magnesium Total Bilirubin 0.2 AST 39 H ALT 24 Alkaline Phosphatase 73 Creatine Kinase Creatine Kinase Index CK-MB (CK-2) Troponin I < 0.02 Total Protein 7.4 Albumin 3.5 Urine Color Yellow Urine Appearance Clear Urine pH 6.5 Ur Specific [place]art 1.013 Urine Protein Negative Urine Glucose (UA) Negative Urine Ketones Negative Urine Blood Negative Urine Nitrite Negative Urine Bilirubin Negative Urine Urobilinogen 0.2 Ur Leukocyte Esterase Negative 12/25/18 12/25/18 12/27/18 06:30 06:30 21:10 WBC 7.4 RBC 3.75 L Hgb 10.9 L Hct 32.8 L MCV 87.5 MCH 29.1 MCHC 33.3 RDW 13.2 Plt Count 143 MPV 9.1 Absolute Neuts (auto) 4.0 Neutrophils % 53.5 D Lymphocytes % 34.8 D Monocytes % 9.3 Eosinophils % 1.6 D Basophils % 0.8 Nucleated RBC % 0 Sodium 142 Potassium 3.9 Chloride 108 H Carbon Dioxide 28 Anion Gap 6 L BUN 24 H Creatinine 1.1 Creat Clearance w eGFR 63.77 Random Glucose 86 Calcium 8.3 L Magnesium 2.1 Total Bilirubin AST ALT Alkaline Phosphatase Creatine Kinase 419 H Creatine Kinase Index 0.7 CK-MB (CK-2) 3.3 Troponin I < 0.02 Total Protein Albumin Urine Color Urine Appearance Urine pH Ur Specific Evart Urine Protein Urine Glucose (UA) Urine Ketones Urine Blood Urine Nitrite Urine Bilirubin Urine Urobilinogen Ur Leukocyte Esterase Active Medications Generic Name Dose Route Start Last Admin Trade Name Freq PRN Reason Stop Dose Admin Amlodipine Besylate 10 mg 12/25/18 10:00 12/28/18 11:03 Norvasc - PO 10 mg DAILY MACIEL Administration Aspirin 81 mg 12/25/18 10:00 12/28/18 11:03 Asa - PO 81 mg DAILY MACIEL Administration Carvedilol 6.25 mg 12/25/18 10:00 12/28/18 11:04 Coreg - PO 6.25 mg BID MACIEL Administration Donepezil HCl 5 mg 12/25/18 22:00 12/27/18 21:28 Aricept - PO 5 mg HS MACIEL Administration Memantine 10 mg 12/25/18 10:00 12/28/18 11:03 Namenda - PO 10 mg BID MACIEL Administration Olanzapine 5 mg 12/25/18 22:00 12/27/18 21:27 Zyprexa - PO 5 mg HS MACIEL Administration Rosuvastatin Calcium 10 mg 12/25/18 10:00 12/28/18 11:03 Crestor - PO 10 mg DAILY MACIEL Administration Tamsulosin HCl 0.4 mg 12/25/18 22:00 12/27/18 21:27 Flomax - PO 0.4 mg HS MACIEL Administration Condition: Stable - Instructions Diet, Activity, Other Instructions: follow up with PCP follow up with neurologist continue with medication regimen as prescribed return to ER if acute change in mental status, chest pain or respiratory distress Disposition: [facility]ILITY - Home Medications Comprehensive Discharge Medication List: Ambulatory Orders Tamsulosin HCl [Flomax] 0.4 mg PO HS 09/17/18 Amlodipine Besylate [Norvasc -] 10 mg PO DAILY tablet 12/28/18 Aspirin [ASA -] 81 mg PO DAILY tab.chew 12/28/18 Carvedilol [Coreg -] 6.25 mg PO BID tablet 12/28/18 Donepezil HCl [Aricept -] 5 mg PO HS tablet 12/28/18 Memantine HCl [Namenda -] 10 mg PO BID tablet 12/28/18 Olanzapine [Zyprexa -] 5 mg PO HS tablet 12/28/18 Rosuvastatin [Crestor -] 10 mg PO DAILY tablet 12/28/18 Tamsulosin HCl [Flomax -] 0.4 mg PO HS cap.er.24h 12/28/18
== END 2018-12-28 16:21 | DRG 884 ==
LOC: JER 20:12 → JERBED 21:39 → J8W 12-25 04:18 → OBSVTOIN 12-28 08:50
PROVIDERS: ADMIT Family Medicine; ATTEND Family Medicine
DX: F03.91 Unspecified dementia, unspecified severity, with behavioral disturbance (principal); I10 Essential (primary) hypertension; K57.90 Diverticulosis of intestine, part unspecified, without perforation or abscess without bleeding; D64.9 Anemia, unspecified; I25.10 Atherosclerotic heart disease of native coronary artery without angina pectoris; I73.9 Peripheral vascular disease, unspecified; M54.5 Low back pain; R45.1 Restlessness and agitation; E78.5 Hyperlipidemia, unspecified; R07.89 Other chest pain; Z85.46 Personal history of malignant neoplasm of prostate
CPT/HCPCS: 36415; 71045-TC-FY; 80048; 80053; 81003; 82550; 82553; 83735; 84484; 85025; 85027; 93005; 93010; 97116-GP; 97161-GP; 99284-25; G0378